=== PATIENT | male | born 1970 | race Caucasian/White ===

== ENCOUNTER → 2016-10-02 | Outpatient (CLI) | payer MEDICARE ==
[~2016-10-02] MED LIST: ABILIFY5 MG PO; ALBUTEROL2.5 MG/0.5 INH; AMITRIPTYLINE25 MG PO; AMOXICILLIN500 MG PO; ASPIRIN81 M1 PO; ATIVAN1 MG PO; ATIVAN2 MG PO; AUGMENTIN 875 M1 TA1 PO; AUGMENTIN 875 M1 TAB PO; B-121000 MCG PO; BACTRIM DS 8001 TA1 PO; BETAMETHASONE D0.05% TP; BUSPAR5 MG PO; CEPHALEXIN250 MG PO; CLEOCIN150 MG PO; CLINDAMYCIN HC300 MG PO; COMBIVENT1 ARO IH; CORDROL20 MG PO; COREG3.125 MG PO; COUMADIN4 M1 PO; COUMADIN4 M2 PO; COUMADIN4 MG PO; COUMADIN5 M1 PO; COUMADIN5 M2 PO; COUMADIN7.5 M1 PO; DELTASONE2.5 M1 PO; DELTASONE20 MG PO; DILANTIN100 MG PO; DIPROSONE 0.05%15 G1 T; DOXYCYCLINE MO100 MG PO; DOXYCYCLINE100 M3 PO; DUONEB 3 MG/3 ML3 M1 INH; Duoneb 3ML 3 MG/3 ML INH; FIORICET 325 MG1 TAB PO; FLEXERIL5 MG PO; GLIMEPIRIDE4 MG PO; GLUCOPHAGE500 M1 PO; HYDROCODONE BIT1 T11 PO; INDOCIN50 MG PO; INDOMETHACIN50 MG PO; KEFLEX500 MG PO; KEPPRA1000 MG PO; KLOR-CON 88 ME1 PO; LANOXIN0.25 MG PO; LASIX20 MG PO; LEVOFLOXACIN500 MG PO; LIPITOR10 MG PO; LOSARTAN POTASS1 TA5 PO; MAGIMIN-FORTE250 MG PO; MAXALT10 MG PO; MEDROL DOSEPAK4 MG PO; METOPROLOL TART50 M1 PO; MOTRIN800 MG PO; Micro K10 MEQ PO; NAPROSYN500 MG PO; NASONEX0.05 MG/AC NS; NEXIUM40 MG PO; OMEPRAZOLE D/R20 MG PO; PANTOPRAZOLE SO40 MG PO; PHENERGAN W/DM120 ML PO; PREDNICOT20 MG PO; PREDNISONE10 MG PO; PREDNISONE20 MG PO; PREDNISONE5 MG PO; PROAIR HFA0.09 MG/AC IH; PROAIR HFA8.5 GM IH; PROTONIX40 MG PO; REGLAN10 MG PO; SEPTRA DS1 TAB PO; SPIRIVA18 MCG IH; SYMBICORT INH; SYMBICORT1 AE1 IH; SYMBICORT1 AE1 INH; TOPAMAX50 MG PO; TORADOL10 MG PO; TRAMADOL HCL50 MG PO; TRAZODONE100 MG PO; ULTRAM50 MG PO; VALIUM10 MG PO; VALIUM5 MG PO; VIBRAMYCIN100 MG PO; VICODIN 5-3001 EACH PO; VICODIN 5/500 505 M1 PO; VICODIN 5/500 505 MG PO; VIMPAT10 MG/ML PO; VIMPAT200 MG PO; VISTARIL50 MG PO; VRAYLAR3 MG PO; WYMOX500 MG PO; ZITHROMAX Z PA250 MG PO; ZITHROMAX250 MG PO; ZOLOFT100 MG PO; ZOLOFT25 MG; ZOLOFT50 MG PO; Zofran4 MG PO; [UNRECOGNIZED DRUG - OTHER]
--- NOTE | ~2016-10-02 | PR ---
[place], [place] PROGRESS NOTE [facility] [id number] UNIT #: [id number] ROOM: DOCTOR: JENNIFER ORTIZ DPM BIRTHDATE: [birth year] DOS: 10/02/2016 SUBJECTIVE: The patient seen for right lower leg midline wound pyoderma gangrenosum. The patient has again had reactions to about every topical wound care product we have tried. Most recently he AmnioFill applied to the area and became inflamed. I put him on doxycycline and prednisone. Today, he presents with a decrease in the irritation symptoms around the wound. Today, the wound measures 2 cm x 1.5 cm x 0.3 cm. No debridement was performed today. Erythema and edema that were present previously has gone down again with the oral antibiotics and oral steroids. 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 PLAN: 1. Evaluate. 2. We would just continue with a dry dressing to the area every other day. We will have the patient reach out to plastics. We have gotten information from [facility] regarding Plastic Surgery referral to Dr. Lowe. We have reached out to Dr. Lowe's office. They will contact the patient and make that referral. I would like to see if the patient is a candidate for a skin flap. He has had skin graft failure here before. We will provide Dr. Lowe's office with a complete copy of the chart to show how many other topical wound care treatments we have done for the patient without any real progress. The patient is then to make an appointment back at the wound care center after he sees Dr. Lowe and is evaluated for a skin flap. JENNIFER ORTIZ DPM CM:PNGONZÁLEZ [id number] JENNIFER ORTIZ DPM 10/02/16 1008 interface
== END ==
LOC: WOUNDCARE 03:10
DX: I87.011 Postthrombotic syndrome with ulcer of right lower extremity (principal); L97.811 Non-pressure chronic ulcer of other part of right lower leg limited to breakdown of skin; L88 Pyoderma gangrenosum

== ENCOUNTER 2017-01-14 20:36 | Emergency (ER) | payer MEDICARE ==
[~2017-01-14] VITALS: Ht 185.4 cm; Wt 113.4 kg
[2017-01-14 21:02] VITALS: BP 115/65
[2017-01-14 22:31] LABS: BASO % 0.4 % (0.0-1.0); EOS # 0.5 10*3/uL (0.0-0.4); EOS % 4.8 % (1.0-4.0); HEMOGLOBIN 12.1 g/dl (14.0-18.0); LYMPH # 1.5 10*3/uL (1.3-4.4); MEAN CORPUSCULAR HGB 27.6 pg (27.0-31.0); MEAN CORPUSCULAR HGB CONC 33.6 g/dl (33.0-37.0); MEAN PLATELET VOLUME 9.2 fl (9.6-12.3); MONO # 0.6 10*3/uL (0.1-1.0); MONO % 6.7 % (3.0-9.0); NEUT # 6.9 10*3/uL (2.3-7.9); NEUT % 71.9 % (47.0-73.0); PLATELET COUNT AUTOMATED 240 10*3/uL (130-400); RED BLOOD COUNT 4.39 10*6/uL (4.50-5.90); WHITE BLOOD COUNT 9.6 10*3/uL (4.8-10.8)
[2017-01-14 22:44] LABS: ALBUMIN 3.9 gm/dl (3.1-4.5); ALKALINE PHOSPHATASE 86 U/L (45-117); BILIRUBIN, TOTAL 0.3 mg/dl (0.2-1.0); BUN 8 mg/dl (7-24); CARBON DIOXIDE 28 mmol/L (21-32); CHLORIDE 105 mmol/L (98-107); EST GLOM FILT AFRICAN AMERICAN > 60 ml/min; GLUCOSE 149 mg/dL (65-99); POTASSIUM 3.3 mmol/L (3.5-5.1); SGOT/AST 25 IU/L (3-35); SGPT/ALT 22 U/L (12-78); SODIUM 145 mmol/L (136-145)
[2017-01-14 23:36] LABS: INTERNATIONAL NORM RATIO 2.4 (2.0-3.5); PROTHROMBIN TIME 26.8 SECONDS (9.0-12.4)
== END 2017-01-15 01:22 | disposition home or self-care (01) ==
LOC: ED 20:36
PROVIDERS: Physician Assistant
DX: Z45.2 Encounter for adjustment and management of vascular access device (principal); Z88.6 Allergy status to analgesic agent; Z88.1 Allergy status to other antibiotic agents; Z88.8 Allergy status to other drugs, medicaments and biological substances; Z79.899 Other long term (current) drug therapy; Z79.82 Long term (current) use of aspirin; Z79.02 Long term (current) use of antithrombotics/antiplatelets

== ENCOUNTER → 2017-01-15 | Day surgery (SDC) | payer MEDICARE ==
[2017-01-15 12:08] VITALS: BP 138/76
== END | disposition home or self-care (01) ==
LOC: SDC 09:20
DX: Z45.2 Encounter for adjustment and management of vascular access device (principal); J44.9 Chronic obstructive pulmonary disease, unspecified; F41.9 Anxiety disorder, unspecified; F32.9 Major depressive disorder, single episode, unspecified; K21.9 Gastro-esophageal reflux disease without esophagitis; E11.9 Type 2 diabetes mellitus without complications; Z87.01 Personal history of pneumonia (recurrent); Z83.3 Family history of diabetes mellitus; Z82.49 Family history of ischemic heart disease and other diseases of the circulatory system

== ENCOUNTER → 2017-01-24 | Outpatient (CLI) | payer MEDICARE ==
--- NOTE | ~2017-01-24 | PR ---
[place], [place] PROGRESS NOTE NAME: SHERRIE ERICKSON [facility] #: [id number] UNIT #: [id number] ROOM: DOCTOR: BREA NewbyPETER BIRTHDATE: [birth year] DOS: 01/24/2017 This is a new patient evaluation. CHIEF COMPLAINT: Chronic ulcer of the right lower extremity. HISTORY OF PRESENT ILLNESS: This is a 46-year-old male that is known to me and known to the Wound Clinic who has been here for several years now with a nonhealing ulcer of the right lower extremity. The ulcer was felt to be of an inflammatory nature and the patient had been seen by Dr. Foreman, and had had intraoperative debridement and placement of EpiFix graft as well as injections of EpiFix graft without any improvement in the wound. He also was placed on fairly high doses of steroids and despite the treatment was noted to have nonhealing ulcer, which initially was noted to have osteomyelitis of the right leg. The patient was going to be considered a candidate for hyperbarics and was going to be considered for an ID evaluation. Eventually, the patient's blood sugar became quite uncontrolled and the patient was admitted into the hospital early in November and eventually due to the nature of the wound and the bone infection, the patient was transferred to a higher level of care. Apparently, he was sent to [facility] for treatment. He eventually underwent OR debridement and a bone debridement there. He said they took out quite a bit of the bone that he is aware of and he was placed on IV antibiotics, believed it was vancomycin by Infectious Disease. Dr. Sumner is managing his antibiotics. He is on IV vanco at least twice a day and is going to have them given through at least sometime during January. He is not quite sure when. He will finish it. He also notes continued pain at the site of the wound. The wound has some granulation tissue, but still is quite open and has not epithelized at all really. The patient also has complications with multiple topical agents that he has tried in the past as well as adhesive topical products have been quite a challenge for him. In addition, he was seen by Dr. Lowe who is a plastic surgeon out in [place] this was prior to him being diagnosed with osteo who at that point was considering some type of skin graft, but due to his steroid use and hemoglobin A1c being elevated, he did not feel he was a candidate at that time for surgery, but he has not seen Dr. Lowe recently since he was diagnosed with osteomyelitis so that is something he has not done yet. But in any case, the patient was discharged home and has come to follow back up in the wound clinic for further management. He is considering hyperbaric oxygen. We did discuss this in the past and we had started the preliminary diagnostic studies for this; however, he really was unable to complete them due to his hospitalization. Though, he did not get the pulmonary function test, echocardiogram, ECG etc. as ordered. PAST MEDICAL HISTORY: Significant for atrial fibrillation. He has got a pacemaker. He is status post mitral valve replacement, on Coumadin. He has a history of migraine headaches. He is being followed by neurologist for this. He has a history of depression, attention deficit disorder, lumbar disk disease, cervical disk disease, chronic ulcer of the right lower extremity for years. He is status post permanent pacemaker as stated above. He was diagnosed with COPD and he blames this related to a previous work habit. He said he did not use any precautions to avoid glutens and has been told that he has had a pretty poor [place], [place] PROGRESS NOTE [facility] [id number] UNIT #: [id number] ROOM: DOCTOR: PETER GUIDRY M.D. BIRTHDATE: [birth year] lung function. He has had a history of a contusion of the left shoulder, contusion of left wrist, elevated blood pressure, history of pleurisy, history of acute bronchitis, history of acute chest pain, cellulitis of the lower extremity, has a history of chest pain with low risk for cardiac etiology, admissions for chest pains, generalized anxiety disorder, hematoma of an injection site, leukocytosis, pyoderma gangrenosum, which was the working diagnosis of his ulcer. He has had multiple fractures and repair, status post surgical manipulation of the ankle joint. He has had trauma from falling off stairs, he has had a history of lymph node biopsies, multiple biopsies as a child, the reason for this is unclear, history of nose fracture. SOCIAL HISTORY: He is a previous smoker. He did smoke heavily 2-4 packs a day for several years over 18, but now just uses snuff daily. No history of illicit drug use. FAMILY HISTORY: Significant for cancer, unknown type in his father, history of hypertension and diabetes. Mother with a history of carotid artery surgery, hypertension and diabetes. ALLERGIES: MULTIPLE AND INCLUDE HE IS ALLERGIC TO SILK SUTURES, TAPE, ACETAMINOPHEN, BACITRACIN FROM A BAND-AID, BRAND ADHESIVE BAND-AIDS, DIPHENHYDRAMINE FROM TYLENOL PM, LIDOCAINE, NEOMYCIN, POLYMYXIN B. HE IS ALSO ALLERGIC TO THE GLUE ON THE WOUND VAC. HE IS ALSO ALLERGIC TO SILVADENE, CALAZIME PROTECTANT PASTE. CURRENT MEDICATIONS: Are as follows: He has tapered off of his prednisone. He says he is not on that anymore, Cozaar 50 mg a day, Levemir subQ daily, hydrochlorothiazide 12.5 daily, Lipitor 10 daily, aspirin 81 a day, Zoloft 100 q. 12, diazepam 5 mg p.o. t.i.d. He was on Coumadin, Glucophage 500 p.o. b.i.d., Ambien 10 mg q.h.s. p.r.n. He believes he is on vancomycin IV. We are going to obtain his most recent discharge summary. These medications are from when he was here in the hospital, so there may have been some changes regarding medications and antibiotics that he is on. MEDICATIONS: The last medication list that we have recorded is from when he was in the hospital. He was at that time on prednisone 5 daily, but he says he is off the prednisone now. He is on Cozaar 50 mg daily, Levemir subQ daily, hydrochlorothiazide 12.5 daily, Lipitor 10 daily, aspirin 81 daily, sertraline 100 q. 12 hours, diazepam 5 mg t.i.d., Coumadin 5 mg daily, metformin 500 p.o. b.i.d. and he is on vancomycin, he believes for IV antibiotic use. We will get an updated medication list from his recent discharge at [place]. REVIEW OF SYSTEMS: He denies any fevers or chills. Recent chest pains. He gets dyspneic on exertion. It is chronic, but he said he is able to walk a fair amount without getting short of breath. He does use his inhalers, he has inhalers. He is going to get us his medication list once again, that was not listed on his medication list for wheezing. He uses that once or twice a day as needed. He denies any nausea or vomiting, diarrhea or problems with his antibiotics at this time. [place], [place] PROGRESS NOTE NAME: SHERRIE ERICKSON [facility] #: [id number] UNIT #: [id number] ROOM: DOCTOR: BREA NewbyPETER BIRTHDATE: [birth year] OBJECTIVE: VITAL SIGNS: He is afebrile, pulse is 80, respirations 16, blood pressure is 120/78. GENERAL: He is in no acute distress. He has somewhat of a flat affect. NECK: There is no JVD. LUNGS: His lungs have coarse breath sounds in the bases, but no overt wheezing. CARDIOVASCULAR: S1, S2 regular rate and rhythm. Mechanical heart sounds appreciable. I do not appreciate a murmur. ABDOMEN: Soft and nontender. EXTREMITIES: There is really no edema or calf tenderness. He has an open wound located on the right anterior tibial area that is measuring 2.8 x 2.8 x 0.2. There is granulation tissue appreciable and some fibrin slough at the periphery of the wound. Redness is definitely calmed down quite a bit from what I could appreciate on the last pictures when he was here that were taken, so that does seem improved. There is tendon exposed. He did not get IRMA done today secondary to he did not want the compression of the cuff around the wound, but he did have arterial studies done, last November when he was here, which showed no proximal significant stenotic lesion, mild bilateral distal atherosclerosis normal; bilateral lower extremity arterial duplex, no evidence of significant arterial occlusive disease, so that has been addressed already. A selective debridement was done today. The tissue removed was just nonviable fibrin and slough. This was accomplished with a curette, forceps, and scissors. There was no bleeding. The patient tolerated the debridement well. No topical anesthesia was used secondary to his allergies. A recent x-ray that was done back in November shows no acute osseous abnormality that was at the tibiofibular area. He has had a bone scan that was positive back in October, which showed findings consistent with osteomyelitis involving the distal shaft of the right tibia that was done back in October. Most recent white count that was back in November was 9.9. His last hemoglobin A1c that I could find was 8.5 and that was in September. His BUN was 8, creatinine is 1.10, this is back on . The hemoglobin A1c was back then in September, I do not see a recent. C-reactive protein actually was 0.29 and that was on 12/05/2016. ASSESSMENT AND PLAN: Chronic non-healing ulceration in a diabetic patient with a bone infection, continues to have an open wound with no improvement as far as the size of the wound goes, it is still open and fairly deep. Tendon is exposed. He has failed multiple modalities as far as wound care goes and even failed EpiFix graft. He is status post bone debridement. He is on IV antibiotics. His circulation is adequate. I would like to use hyperbaric oxygen as adjuvant therapy for treatment. However, I think he should follow up with the plastic surgeon for a skin graft, this wound has been open for so long that the likelihood of healing without surgical intervention is slim in my opinion at this point. He has failed immunosuppressive agents. The ulcer is an inflammatory atypical wound. Other options to consider are possible referral to a assistant professor or gizzard puller who specializes inflammatory processes. However, this is a bit difficult for him to get to [place] for possible consultations. I will discuss with the patient if he would be willing to see a assistant professor or gizzard puller as well in addition to the plastic surgeon. I think that this ulcer is fairly atypical and chronic and has failed multiple [place], [place] PROGRESS NOTE NAME: SHERRIE ERICKSON UNIT #: [id number] ROOM: DOCTOR: PETER GUIDRY M.D. BIRTHDATE: [birth year] modalities and multiple consultations may be warranted in helping to heal this patient. In addition, I think hyperbaric oxygen will also add adjuvant treatment in helping to heal this wound as well and has not been used. He, however, does have some chronic obstructive pulmonary disease. He had an echo done along, it was over a year ago. His ejection fraction at that time was normal from what I can see, but he is going to need a repeat echo. He had a chest x-ray done in November, which showed stable appearance of chronic lung changes. There are increased interstitial markings in the bilateral lung bases. There is no pneumothorax or acute pulmonary process noted. No focal infiltrates. That x-ray was felt to be stable. So he will need pulmonary function tests to see where his lung function is, and based on this, we will see if he is a candidate for hyperbaric oxygen. Follow up in wound Clinic in 1 week. I would like to use TheraHoney for now to help keep the wound clean. He said he has used TheraHoney before and it has not bothered him, so I would like to go ahead and use that for now. PETER GUIDRY MD CM:AUSTIN [id number] PETER GUIDRY M.D. 01/25/17 0749 interface
== END ==
LOC: WOUNDCARE 02:45
DX: E11.622 Type 2 diabetes mellitus with other skin ulcer (principal); L97.814 Non-pressure chronic ulcer of other part of right lower leg with necrosis of bone; J44.9 Chronic obstructive pulmonary disease, unspecified; E11.69 Type 2 diabetes mellitus with other specified complication; M86.361 Chronic multifocal osteomyelitis, right tibia and fibula; I48.91 Unspecified atrial fibrillation; G43.909 Migraine, unspecified, not intractable, without status migrainosus; F32.9 Major depressive disorder, single episode, unspecified; F41.9 Anxiety disorder, unspecified; F17.210 Nicotine dependence, cigarettes, uncomplicated; Z79.01 Long term (current) use of anticoagulants; Z95.0 Presence of cardiac pacemaker

== ENCOUNTER → 2017-04-30 | Outpatient (CLI) | payer MEDICARE ==
--- NOTE | ~2017-04-30 | PR ---
[place], [place] PROGRESS NOTE NAME: SHERRIE ERICKSON [facility] #: [id number] UNIT #: [id number] ROOM: DOCTOR: BREA NewbyPETER BIRTHDATE: [birth year] DOS: 04/30/2017 CHIEF COMPLAINT: Chronic ulcer of the right lower extremity. HISTORY OF PRESENT ILLNESS: This is a 46-year-old male with a history of diabetes and multiple medical problems, has been following up in our Wound Clinic off and on for several years now for nonhealing ulcer of the right lower extremity. The working diagnosis initially had been pyoderma gangrenosum. He had failed immunosuppressive agents, he had been on high dose steroids without any improvement. There was subsequent osteomyelitis. He did have bone debridement and also was treated with IV antibiotics for several weeks. This was managed by Infectious Disease. He was seen by me back in December for possible hyperbaric oxygen therapy to be utilized as adjuvant treatment. At that time, I had recommended pulmonary testing as well as an echocardiogram to see if he would even be considered a candidate for hyperbaric oxygen from a cardiopulmonary standpoint. His wound was open at that time and quite deep and there was tendon exposed. We had recommended to utilize TheraHoney at that time, he stated that he used it for short term and it seemed to irritate the wound and so he stopped using it and has been since then using just saline soaked wet-to-dry dressing daily and he says that seems to be staying the keep things stable. However, I had also recommended for him to go back to surgery. I did not think that this wound was closed without surgical intervention. The patient states that he was only seen [address] Lowe who is the plastic surgeon that he followed up was. When I asked specifically what Dr. Lowe had stated, the patient proceeded to tell me that he is the kind of person and that one would like to take a tie and place it around his neck to the point where his face turned blue "any and test himself." He also stated that the Dr. Lowe was going to refer him to a surgeon at [place] for this; however, the patient states he never heard from the office and never followed back up since then, so he has not seen anyone for this wound for several months now. As far as exam goes temperature is 98.2, pulse is 80, respirations 18. Blood pressure is 100/68. The wound is located on the anterior leg. It is measuring 3 x 2 x 0.2. It looks fairly clean. There is really no overt necrotic tissue present. There is some erythema, which mostly seems chronic, mostly distally is an area of slightly increased erythema and some edema at that point. No debridement was done. This is a patient with chronic nonhealing wound that has been noncompliant with followup and has made verbally threatening remarks against another physician. I spoke with transition social worker here in the hospital who then referred me to Karla Roberto, who I spoke was at length as well and she had recommended for me to call the police department. I called the police department and gave report about the statement that the patient made against Dr. Lowe. I also did inform Dr. Lowe's office and I spoke personally to Dr. Lowe regarding the statement that the patient has made. At this time, we will defer any further testing or recommendation for this patient and we will defer any further wound care advice for the patient due to these verbally threatening remark that the patient has made. I will speak with our services program manager to see what the policy is for discharging this patient from our clinic. [place], [place] PROGRESS NOTE NAME: SHERRIE ERICKSON UNIT #: [id number] ROOM: DOCTOR: PETER GUIDRY M.D. BIRTHDATE: [birth year] PETER GUIDRY MD CM:AUSTIN [id number] PETER GUIDRY M.D. 04/30/17 163 interface
== END ==
LOC: WOUNDCARE 08:50
DX: E11.622 Type 2 diabetes mellitus with other skin ulcer (principal); L97.814 Non-pressure chronic ulcer of other part of right lower leg with necrosis of bone; E11.69 Type 2 diabetes mellitus with other specified complication; M86.361 Chronic multifocal osteomyelitis, right tibia and fibula; L88 Pyoderma gangrenosum

== ENCOUNTER → 2017-05-10 | Outpatient (CLI) | payer MEDICARE ==
[2017-05-10 15:06] LABS: INTERNATIONAL NORM RATIO 3.1 (2.0-3.5); PROTHROMBIN TIME 35.5 SECONDS (9.0-12.4)
== END | disposition home or self-care (01) ==
LOC: LAB 14:20
PROVIDERS: Internal Medicine
DX: I48.91 Unspecified atrial fibrillation (principal)

== ENCOUNTER → 2017-06-24 | Outpatient (CLI) | payer MEDICARE ==
[2017-06-24 15:12] LABS: INTERNATIONAL NORM RATIO 2.1 (2.0-3.5)
== END | disposition home or self-care (01) ==
LOC: LAB 14:02
PROVIDERS: Internal Medicine
DX: I48.91 Unspecified atrial fibrillation (principal)

== ENCOUNTER 2017-07-25 15:14 | Emergency (ER) | payer MEDICARE ==
[~2017-07-25] VITALS: Ht 177.8 cm; Wt 90.7 kg
[2017-07-25 15:20] VITALS: BP 112/74
== END 2017-07-25 16:04 | disposition home or self-care (01) ==
LOC: ED 15:14
DX: T15.92XA Foreign body on external eye, part unspecified, left eye, initial encounter (principal); F17.200 Nicotine dependence, unspecified, uncomplicated; Z88.1 Allergy status to other antibiotic agents; Z88.8 Allergy status to other drugs, medicaments and biological substances; Z91.048 Other nonmedicinal substance allergy status; X58.XXXA Exposure to other specified factors, initial encounter; Y93.89 Activity, other specified; Y92.89 Other specified places as the place of occurrence of the external cause; Y99.8 Other external cause status

== ENCOUNTER → 2018-10-16 | Outpatient (CLI) | payer MEDICARE | END | disposition home or self-care (01) | LOC: CARD 10-15 10:30 | DX: I51.7 Cardiomegaly (principal); R00.2 Palpitations; Z95.2 Presence of prosthetic heart valve ==

== ENCOUNTER → 2018-10-22 | Outpatient (CLI) | payer MEDICARE ==
[2018-10-23 08:12] LABS: ALPHA-1-ANTITRYPSIN, SERUM 118 mg/dL (90-200)
== END | disposition home or self-care (01) ==
LOC: LAB 15:35
PROVIDERS: Internal Medicine Critical Care Medicine
DX: J44.9 Chronic obstructive pulmonary disease, unspecified (principal)

== ENCOUNTER → 2019-04-30 | Outpatient (CLI) | payer MEDICARE ==
[~2019-04-30] MED LIST changes: +AMARYL1 M1 PO; +IMDUR SA30 MG PO; +PERCOCET 5-3251 EACH PO; +RITALIN LA20 MG PO
--- NOTE | ~2019-04-30 | ST ---
[place], [place] EXERCISE STRESS TEST REPORT NAME: [facility] ERICKSON [id number] UNIT #: [id number] ROOM: DOCTOR: ARTIS ADAMS [facility],JOSSEL[place] BIRTHDATE: [birth year] DOS: 04/30/2019 The patient received Lexiscan 0.4 mg over 10 seconds. Heart rate is 85. No ischemic changes on the EKG intermittent AV pacing with predominantly intrinsic QRS with atrial pacing and isotope was injected. No complication noted. Myocardial perfusion scan to follow. JSOSELIN WISDOM MD CM:STRESS:EXERCISE STRESS TEST REPORT [id number] JOSSELIN WISDOM MD [facility]
--- NOTE | 2019-04-30 11:50 | NUR ---
INFORMED CONSENT OBTAINED FOR LEXISCAN NUCLEAR STRESS TEST WITH DR. WISDOM. RESTING EKG ATRIAL PACED WITH A RESTING HR OF 86 WITH BP OF 110/78. LUNGS CLEAR WITH SPO2 OF 98% ON ROOM AIR. PT COMPLETED A 1:00 LEXISCAN PROTOCOL RECEIVING LEXISCAN 0.4 MG IV OVER 10 SECONDS. HAD NO CHEST PAIN. EKG NONDIAGNOSTIC WITH PACEMAKER. HAS INTERMITTENT VENTRICULAR PACED. HAD A PEAK HR OF 86 WITH BP OF 124/82. LAST RECOVERY HR OF 85 WITH BP OF 110/74. AWAITING SCANNING IN STABLE CONDITION.
== END | disposition home or self-care (01) ==
LOC: CARD 00:48
DX: R06.02 Shortness of breath (principal); R53.81 Other malaise; R07.89 Other chest pain; J44.9 Chronic obstructive pulmonary disease, unspecified; Z95.0 Presence of cardiac pacemaker; Z95.2 Presence of prosthetic heart valve; Z82.49 Family history of ischemic heart disease and other diseases of the circulatory system

== ENCOUNTER 2019-06-05 14:03 | Inpatient (IN) | payer MEDICARE ==
[~2019-06-05] VITALS: Ht 185.4 cm; Wt 115.9 kg
[2019-06-05 14:07] VITALS: BP 128/80
[2019-06-05 15:17] LABS: BASO # 0.1 10*3/uL (0.0-0.1); BASO % 0.5 % (0.0-1.0); EOS # 0.3 10*3/uL (0.0-0.4); EOS % 2.9 % (1.0-4.0); HEMATOCRIT 42.1 % (42.0-52.0); HEMOGLOBIN 14.1 g/dl (14.0-18.0); LYMPH % 21.4 % (27.0-41.0); MEAN CELL VOLUME 87.3 fl (80.0-94.0); MEAN CORPUSCULAR HGB 29.3 pg (27.0-31.0); MEAN CORPUSCULAR HGB CONC 33.5 g/dl (33.0-37.0); MEAN PLATELET VOLUME 8.5 fl (9.6-12.3); MONO # 0.6 10*3/uL (0.1-1.0); MONO % 6.4 % (3.0-9.0); NEUT # 6.4 10*3/uL (2.3-7.9); NEUT % 68.5 % (47.0-73.0); PLATELET COUNT AUTOMATED 261 10*3/uL (130-400); RED BLOOD COUNT 4.82 10*6/uL (4.50-5.90); RED CELL DISTRI WIDTH 13.1 % (0-14.5); WHITE BLOOD COUNT 9.3 10*3/uL (4.8-10.8)
[2019-06-05 15:35] LABS: ALBUMIN 3.9 gm/dl (3.1-4.5); ALKALINE PHOSPHATASE 141 U/L (45-117); BUN 10 mg/dl (7-24); CHLORIDE 103 mmol/L (98-107); CREATININE 1.43 mg/dL (0.70-1.30); POTASSIUM 3.7 mmol/L (3.5-5.1); SGOT/AST 16 IU/L (3-35); SGPT/ALT 30 U/L (12-78); SODIUM 137 mmol/L (136-145); TOTAL PROTEIN 7.5 gm/dL (6.4-8.2)
[2019-06-05 15:44] LABS: ACT PARTIAL THROMBO TIME 36.7 SECONDS (20.0-32.1); INTERNATIONAL NORM RATIO 2.1 (2.0-3.5)
[2019-06-05 15:58] VITALS: BP 117/59
--- NOTE | 2019-06-05 17:26 | NUR ---
PT W/O ACUTE DISTRESS NOTED AWAITING ALL RESULTS FOR ADDITIONAL PLAN OF CARE,SAFETY PRECAUTIONS INTACT AND CALL LIGHT WITHIN REACH.
[2019-06-05 17:28] VITALS: BP 108/74
--- NOTE | 2019-06-05 18:55 | NUR ---
PT WITH MULTIPLE ABRASIONS/SCRATCHES NOTED TO BUE NO EXUDATE NO TX REQUIRED.
[2019-06-05 19:34] VITALS: BP 108/80
[2019-06-05 19:45] VITALS: BP 111/69
--- NOTE | 2019-06-05 19:45 | NUR ---
Time: 1946 A 48 year old MALE admitted to 4E under services of PARK NEVES DO. Pt. arrived via wheel chair from ER. Chief complaint: R LEG WOUND, CHRONIC OSTEO, NON-HEALING ULCER. PATIENT ORIENTED TO THE FLOOR 4E CALL LIGHT REVIEWED AND DEMONSTRATED ADVANCED DIRECTIVE, BELONGINGS CHECKLIST AND HEALTHY LIFESTYLES FORM REVIEWED AND COMPLETED. RIRI PALOMINO
--- NOTE | 2019-06-05 20:10 | NUR ---
SPOKE WITH DR LUCIA, NOTIFIED THAT [facility] REC IS UP-TO-DATE. PATIENT WILL BE GIVEN A NON-SCHEDULED DOSE OF LASIX AND RITALIN WILL BE GIVEN TO MAINTAIN PATIENT REGULAR HOME MEDICATION SCHEDULE.
--- NOTE | 2019-06-05 20:30 | NUR ---
PODIATRY AND INFECTIOUS DISEASE NOTIFIED OF ROUTINE CONSULTS. CALLBACK NUMBER PROVIDED. PATIENT CONDITION REVIEWED.
[2019-06-06] VITALS: BP 107/63
--- NOTE | 2019-06-06 | NUR ---
Patient resting quietly with no c/o discomfort. Respirations easy and regular. Vital signs stable. No overt distress. ION HAGER
--- NOTE | 2019-06-06 04:00 | NUR ---
Patient resting quietly with no c/o discomfort. Respirations easy and regular. Vital signs stable. No overt distress. ION HAGER
--- NOTE | 2019-06-06 05:46 | NUR ---
24 HR chart check completed.
[2019-06-06 06:26] LABS: BASO % 0.5 % (0.0-1.0); EOS # 0.3 10*3/uL (0.0-0.4); HEMATOCRIT 42.2 % (42.0-52.0); HEMOGLOBIN 13.7 g/dl (14.0-18.0); LYMPH # 1.8 10*3/uL (1.3-4.4); LYMPH % 29.4 % (27.0-41.0); MEAN CELL VOLUME 88.8 fl (80.0-94.0); MEAN CORPUSCULAR HGB 28.8 pg (27.0-31.0); MEAN CORPUSCULAR HGB CONC 32.5 g/dl (33.0-37.0); MEAN PLATELET VOLUME 9.2 fl (9.6-12.3); MONO # 0.5 10*3/uL (0.1-1.0); MONO % 8.5 % (3.0-9.0); NEUT # 3.6 10*3/uL (2.3-7.9); NEUT % 57.3 % (47.0-73.0); PLATELET COUNT AUTOMATED 232 10*3/uL (130-400); RED BLOOD COUNT 4.75 10*6/uL (4.50-5.90); RED CELL DISTRI WIDTH 13.1 % (0-14.5); WHITE BLOOD COUNT 6.3 10*3/uL (4.8-10.8)
[2019-06-06 07:06] LABS: ALBUMIN 3.5 gm/dl (3.1-4.5); ALKALINE PHOSPHATASE 131 U/L (45-117); BUN 10 mg/dl (7-24); CHLORIDE 104 mmol/L (98-107); CHOLESTEROL 144 mg/dL (<200); CREATININE 1.31 mg/dL (0.70-1.30); PHOSPHOROUS 4.3 mg/dL (2.5-4.9); POTASSIUM 3.6 mmol/L (3.5-5.1); SGOT/AST 20 IU/L (3-35); SGPT/ALT 26 U/L (12-78); SODIUM 141 mmol/L (136-145); TOTAL PROTEIN 6.7 gm/dL (6.4-8.2); TRIGLYCERIDES 281 mg/dl (<150); VLDL CHOLESTEROL 56 mg/dL (6-40)
[2019-06-06 07:07] LABS: HDL CHOLESTEROL 35 mg/dl (40-60); LDL CHOLESTEROL 53 mg/dL (9-159)
[2019-06-06 07:09] LABS: INTERNATIONAL NORM RATIO 2.1 (2.0-3.5)
[2019-06-06 08:00] VITALS: BP 113/77
[2019-06-06 12:00] VITALS: BP 116/78
--- NOTE | 2019-06-06 12:14 | NUR ---
WALKING PEREZ WITH EASE, NO COMPLIANTS VOICED.
--- NOTE | 2019-06-06 13:24 | NUR ---
OFF FLOOR FOR CT.
--- NOTE | 2019-06-06 15:24 | NUR ---
DRESSING CHANGED FOR SOILAGE PER ORDERS.
[2019-06-06 16:00] VITALS: BP 128/74
--- NOTE | 2019-06-06 17:40 | NUR ---
PT C/O GENERALIZED PAIN, WORSE ON THE LEG. RATING 10/10 ON THE PAIN SCALE. MEDICATED WITH PERCOCET. WILL MONITOR.
--- NOTE | 2019-06-06 18:40 | NUR ---
PT STATES PAIN MEDICATION WAS NOT EFFECTIVE. RATING PAIN A 10/10 STILL. NOTIFIED PRIMARY TEAM. NEW ORDERS FOR IV MORPHINE SEE NOV.
[2019-06-06 20:00] VITALS: BP 103/57
--- NOTE | 2019-06-06 20:00 | NUR ---
24 HOUR CHART CHECK COMPLETE.
--- NOTE | 2019-06-06 21:00 | NUR ---
DRESSING CHANGE PREFORMED TO PT RIGHT ANKLE WOUND D/T SATURATION. BLOODY DRAINAGE NOTED. WOUND CLEANED WITH NORMAL SALINE, THERAHONEY APPLIED, AND NEW OPTIFOAM IN PLACE. PT TOLERATED WELL. WOUND BED RED. ERYTHEMA NOTED SURROUNDING WOUND BED WELL. NO FOUL ODORS. PT STATES THE SITE IS PAINFUL.
--- NOTE | 2019-06-06 21:17 | NUR ---
PRN MORPHINE ADMINISTERED FOR PT C/O 07/09 RT ANKLE PAIN. WILL CONTINUE TO MONITOR AND REASSESS. NO OTHER COMPLAINTS AT THIS TIME. CALL LIGHT IN REACH.
--- NOTE | 2019-06-06 22:14 | NUR ---
PT PLAYING ON PHONE IN BED. WHEN ASKED ABOUT HIS PAIN PT STATES THE MORPHINE "HELPED VERY LITTLE". PT DOESNT APPEAR TO BE IN ANY DISTRESS AT THIS TIME. RESPIRATIONS EASY AND UNLABORED. WILL CONTINUE TO MONITOR.
[2019-06-07] VITALS: BP 105/64
[2019-06-07 06:28] LABS: BASO % 0.4 % (0.0-1.0); EOS # 0.2 10*3/uL (0.0-0.4); EOS % 3.3 % (1.0-4.0); HEMOGLOBIN 13.2 g/dl (14.0-18.0); LYMPH # 1.8 10*3/uL (1.3-4.4); LYMPH % 25.9 % (27.0-41.0); MEAN CELL VOLUME 87.3 fl (80.0-94.0); MEAN CORPUSCULAR HGB 28.8 pg (27.0-31.0); MEAN PLATELET VOLUME 9.3 fl (9.6-12.3); MONO # 0.6 10*3/uL (0.1-1.0); MONO % 8.3 % (3.0-9.0); NEUT # 4.3 10*3/uL (2.3-7.9); NEUT % 61.8 % (47.0-73.0); PLATELET COUNT AUTOMATED 230 10*3/uL (130-400); RED BLOOD COUNT 4.58 10*6/uL (4.50-5.90)
[2019-06-07 06:38] LABS: BUN 10 mg/dl (7-24); CHLORIDE 101 mmol/L (98-107); CREATININE 1.25 mg/dL (0.70-1.30); POTASSIUM 3.3 mmol/L (3.5-5.1); SODIUM 138 mmol/L (136-145)
[2019-06-07 06:40] LABS: INTERNATIONAL NORM RATIO 2.3 (2.0-3.5)
[2019-06-07 08:00] VITALS: BP 107/65
[2019-06-07] MEDS ORDERED: SEPTDS PO (11:39)
[2019-06-07] MEDS ORDERED: NATURE'S BLEND F1 MG PO (11:39)
--- NOTE | 2019-06-07 12:07 | NUR ---
discharge photo of wound taken.
--- NOTE | 2019-06-07 12:32 | NUR ---
Discharge instructions reviewed with patient/family. Patient receptive and verbalizes understanding. Follow-up care arranged. Written instructions given to patient/family. Pt. educated to follow up with outpatient surgeon regaurding wound to right leg. pt verbalized understanding. discharge picture of wound taken. ELEN DOE
[2019-09-09] MEDS ORDERED: TRAMADOL HCL50 MG PO (14:03)
[2019-09-09] MEDS ORDERED: DOXYCYCLINE100 M3 PO (14:05)
== END 2019-06-07 12:32 | disposition home or self-care (01) | DRG 863 ==
LOC: ED 14:03 → EDHOLD 18:11 → 4E 18:42
PROVIDERS: Internal Medicine; Physician Assistant; Student in an Organized Health Care Education/Training Program; ADMIT Internal Medicine
DX: T81.49XA Infection following a procedure, other surgical site, initial encounter (principal); M86.661 Other chronic osteomyelitis, right tibia and fibula; L97.313 Non-pressure chronic ulcer of right ankle with necrosis of muscle; D68.9 Coagulation defect, unspecified; L03.115 Cellulitis of right lower limb; E11.622 Type 2 diabetes mellitus with other skin ulcer; N18.3 Chronic kidney disease, stage 3 (moderate); E11.69 Type 2 diabetes mellitus with other specified complication; R74.8 Abnormal levels of other serum enzymes; E66.9 Obesity, unspecified; J41.0 Simple chronic bronchitis; F41.1 Generalized anxiety disorder; G43.911 Migraine, unspecified, intractable, with status migrainosus; F17.210 Nicotine dependence, cigarettes, uncomplicated; I48.0 Paroxysmal atrial fibrillation; E11.65 Type 2 diabetes mellitus with hyperglycemia; E11.22 Type 2 diabetes mellitus with diabetic chronic kidney disease; E78.5 Hyperlipidemia, unspecified; Y83.8 Other surgical procedures as the cause of abnormal reaction of the patient, or of later complication, without mention of misadventure at the time of the procedure; Y92.89 Other specified places as the place of occurrence of the external cause; Z88.4 Allergy status to anesthetic agent; Z88.8 Allergy status to other drugs, medicaments and biological substances; Z91.09 Other allergy status, other than to drugs and biological substances; Z95.2 Presence of prosthetic heart valve; Z80.8 Family history of malignant neoplasm of other organs or systems; Z83.3 Family history of diabetes mellitus; Z82.49 Family history of ischemic heart disease and other diseases of the circulatory system; Z84.89 Family history of other specified conditions; Z79.899 Other long term (current) drug therapy; Z79.84 Long term (current) use of oral hypoglycemic drugs; Z79.01 Long term (current) use of anticoagulants; Z95.0 Presence of cardiac pacemaker; Z86.14 Personal history of Methicillin resistant Staphylococcus aureus infection; Z68.33 Body mass index [BMI] 33.0-33.9, adult

== ENCOUNTER 2019-06-17 07:44 | Emergency (ER) | payer MEDICARE ==
[~2019-06-17] VITALS: Ht 185.4 cm; Wt 114.3 kg
--- NOTE | ~2019-06-17 | EKG ---
[place], [place] ELECTROCARDIOGRAM REPORT NAME: SHERRIE ERICKSON UNIT #: [id number] ROOM: DOCTOR: TROY DRAFT REPORT BIRTHDATE: [birth year] [facility] Test Date: 2019-06-17 Test Time: 08:33:23 Pat Name: SHERRIE ERICKSON Department: Room: Gender: M Component Overhaul Operator: Caterina Armstrong : 1970 Requested By: CINDY KIRK Order Number: [id number] Reading MD: Partha Mckeon Measurements Intervals [place] Rate: 85 P: NV: 117 QRS: 22 QRSD: 102 T: 37 QT: 386 QTc: 459 Interpretive Statements Atrial-paced rhythm Electronically Signed On 06-19-2019 12:03:35 PDT by Partha Mckeon CM:EKGRPT:ELECTROCARDIOGRAM REPORT [id number] CINDY RAMEY DRAFT REPORT CINDY KIRK DO
[~2019-06-17 07:44] MED LIST changes: +NATURE'S BLEND F1 MG PO; +SEPTDS PO
[2019-06-17 07:47] VITALS: BP 114/73
[2019-06-17 08:27] LABS: BASO % 0.5 % (0.0-1.0); EOS # 0.3 10*3/uL (0.0-0.4); EOS % 3.4 % (1.0-4.0); HEMATOCRIT 40.1 % (42.0-52.0); HEMOGLOBIN 13.2 g/dl (14.0-18.0); LYMPH # 1.8 10*3/uL (1.3-4.4); LYMPH % 22.2 % (27.0-41.0); MEAN CELL VOLUME 88.3 fl (80.0-94.0); MEAN CORPUSCULAR HGB 29.1 pg (27.0-31.0); MEAN CORPUSCULAR HGB CONC 32.9 g/dl (33.0-37.0); MEAN PLATELET VOLUME 8.8 fl (9.6-12.3); MONO # 0.5 10*3/uL (0.1-1.0); MONO % 5.5 % (3.0-9.0); NEUT # 5.5 10*3/uL (2.3-7.9); NEUT % 67.9 % (47.0-73.0); PLATELET COUNT AUTOMATED 273 10*3/uL (130-400); RED BLOOD COUNT 4.54 10*6/uL (4.50-5.90); RED CELL DISTRI WIDTH 13.3 % (0-14.5); WHITE BLOOD COUNT 8.1 10*3/uL (4.8-10.8)
[2019-06-17 08:43] LABS: ACT PARTIAL THROMBO TIME 51.8 SECONDS (20.0-32.1); ALBUMIN 3.7 gm/dl (3.1-4.5); CREATININE 1.63 mg/dL (0.70-1.30); INTERNATIONAL NORM RATIO 4.5 (2.0-3.5); POTASSIUM 3.7 mmol/L (3.5-5.1); TOTAL PROTEIN 7.2 gm/dL (6.4-8.2); TROPONIN I 0.016 ng/ml (<0.045)
== END 2019-06-17 11:56 | disposition home or self-care (01) ==
LOC: ED 07:44
PROVIDERS: Emergency Medicine
DX: E11.622 Type 2 diabetes mellitus with other skin ulcer (principal); L97.919 Non-pressure chronic ulcer of unspecified part of right lower leg with unspecified severity; L03.115 Cellulitis of right lower limb; M86.8X6 Other osteomyelitis, lower leg; E11.22 Type 2 diabetes mellitus with diabetic chronic kidney disease; N18.3 Chronic kidney disease, stage 3 (moderate); I48.91 Unspecified atrial fibrillation; J44.9 Chronic obstructive pulmonary disease, unspecified; E78.5 Hyperlipidemia, unspecified; G43.909 Migraine, unspecified, not intractable, without status migrainosus; E66.9 Obesity, unspecified; F17.200 Nicotine dependence, unspecified, uncomplicated; Z88.8 Allergy status to other drugs, medicaments and biological substances; Z91.048 Other nonmedicinal substance allergy status; Z88.1 Allergy status to other antibiotic agents; Z88.4 Allergy status to anesthetic agent; Z79.2 Long term (current) use of antibiotics; Z79.899 Other long term (current) drug therapy; Z79.01 Long term (current) use of anticoagulants; Z68.30 Body mass index [BMI] 30.0-30.9, adult

== ENCOUNTER 2019-06-24 00:16 | Inpatient (IN) | payer MEDICARE ==
[2019-06-22 14:22] LABS: BASO # 0.1 10*3/uL (0.0-0.1); BASO % 0.6 % (0.0-1.0); EOS # 0.3 10*3/uL (0.0-0.4); EOS % 3.5 % (1.0-4.0); HEMOGLOBIN 15.4 g/dl (14.0-18.0); LYMPH # 1.6 10*3/uL (1.3-4.4); LYMPH % 18.6 % (27.0-41.0); MEAN CELL VOLUME 89.7 fl (80.0-94.0); MEAN CORPUSCULAR HGB 28.8 pg (27.0-31.0); MEAN CORPUSCULAR HGB CONC 32.1 g/dl (33.0-37.0); MEAN PLATELET VOLUME 9.2 fl (9.6-12.3); MONO # 0.6 10*3/uL (0.1-1.0); MONO % 6.7 % (3.0-9.0); NEUT # 6.2 10*3/uL (2.3-7.9); NEUT % 70.3 % (47.0-73.0); PLATELET COUNT AUTOMATED 306 10*3/uL (130-400); RED BLOOD COUNT 5.35 10*6/uL (4.50-5.90); RED CELL DISTRI WIDTH 13.2 % (0-14.5); WHITE BLOOD COUNT 8.8 10*3/uL (4.8-10.8)
[2019-06-22 14:42] LABS: CREATININE 1.68 mg/dL (0.70-1.30); POTASSIUM 4.1 mmol/L (3.5-5.1)
[~2019-06-24] VITALS: Ht 185.4 cm; Wt 121.7 kg
[2019-06-24] VITALS (9 sets, daily range): BP systolic 107–142; BP diastolic 69–88
--- NOTE | 2019-06-24 14:00 | NUR ---
Time: 1399 A 48 year old FEMALE admitted to under services of VIKASH ALEXANDER DO. Pt. arrived via bed from [place]. Chief complaint: ULCERATION ANTERIOR ASPECT RT ANKLE PROB OSTEOMYLITIS. CAIT YEBOAH
--- NOTE | 2019-06-24 14:23 | NUR ---
TEAM CALLED AND INFORMED THAT PATIENT IS ADMITTED TO FLOOR. STATED THAT PODIATRY DID NOT INFORM HIM OF PATIENT AND STATED THAT MARILOU TEAM NEEDS TO CONTACT HIM. NURSING MILLINERY DESIGNER LOUISA INFORMED OF SITUATION STATED THAT SHE WILL CALL SURGERY AND GO FROM THERE.
--- NOTE | 2019-06-24 14:51 | NUR ---
INFORMED THAT HOME MEDS WERE VERIFED BY PATIENT AND THAT PATIENT IS REQUESTING DIET ORDER AT THIS TIME. STATED OK
--- NOTE | 2019-06-24 15:59 | NUR ---
DR RUBALCAVA MADE AWARE OF NEW CONSULT.
--- NOTE | 2019-06-24 18:31 | NUR ---
MEDICATED WITH PERCOCERT PER PRN ORDER FOR COMPLAINTS OF RIGHT FOOT PAIN, RATES PAIN 7/10. WILL MONITOR.
--- NOTE | 2019-06-24 19:31 | NUR ---
PERCOCET EFFECTIVE FOR FOOT PAIN.
[2019-06-25] VITALS: BP 119/79
--- NOTE | 2019-06-25 03:22 | NUR ---
24 HR chart check completed.
[2019-06-25 06:49] LABS: BASO % 0.4 % (0.0-1.0); EOS # 0.3 10*3/uL (0.0-0.4); EOS % 3.8 % (1.0-4.0); HEMATOCRIT 37.9 % (42.0-52.0); HEMOGLOBIN 12.1 g/dl (14.0-18.0); LYMPH # 1.4 10*3/uL (1.3-4.4); LYMPH % 19.7 % (27.0-41.0); MEAN CELL VOLUME 91.1 fl (80.0-94.0); MEAN CORPUSCULAR HGB 29.1 pg (27.0-31.0); MEAN CORPUSCULAR HGB CONC 31.9 g/dl (33.0-37.0); MEAN PLATELET VOLUME 9.4 fl (9.6-12.3); MONO # 0.6 10*3/uL (0.1-1.0); NEUT # 4.7 10*3/uL (2.3-7.9); NEUT % 66.7 % (47.0-73.0); PLATELET COUNT AUTOMATED 223 10*3/uL (130-400); RED BLOOD COUNT 4.16 10*6/uL (4.50-5.90); RED CELL DISTRI WIDTH 13.2 % (0-14.5)
[2019-06-25 07:08] LABS: ALBUMIN 3.2 gm/dl (3.1-4.5); BUN 11 mg/dl (7-24); CHLORIDE 105 mmol/L (98-107); SGOT/AST 15 IU/L (3-35); SGPT/ALT 18 U/L (12-78); SODIUM 138 mmol/L (136-145)
[2019-06-25 07:15] LABS: ALKALINE PHOSPHATASE 119 U/L (45-117); PHOSPHOROUS 3.1 mg/dL (2.5-4.9); TOTAL PROTEIN 6.3 gm/dL (6.4-8.2)
[2019-06-25 08:00] VITALS: BP 108/72
--- NOTE | 2019-06-25 08:10 | NUR ---
MEDICATED PT PER PRN ORDERE WITH PERCOCET FOR C/O PAIN ABOVE RIGHT ANKLE THAT RATES 10/10 ON PAIN SCALE. PT'S RIGHT LOWER LEG WRAPPED. TOES WARM WITH GOOD CAP REFILL AT PRESENT TIME.
--- NOTE | 2019-06-25 09:00 | NUR ---
Automatic Serging Machine Operator in to talk to patient. Patient states lives at home with jayne. There are few steps in the home. Physician: sarah [facility] Home health services: none Patient's level of ADLs: INDEPENDENT Patient has working utilities: all working DME: none Follow-up physician's appointment after d/c: will be made by hospitalist nurse director upon discharge Does patient want to access PORTAL?: no Discharge plan discussed with patient, he lives at home with jayne, he states he was independent in adls and ambulation prior to hopsitalization, no ambulation devices at home. discussed with him a discharge plan and he stated he would return home, when medically stable, discussed with him VNA and he declines any services at this time, also discussed with him if he would need home iv antibiotics if he was able to administer them or if he would need to go to a short term long term, he stated his fiance administered them previously and could do this again, case management will follow. TOI JONES
--- NOTE | 2019-06-25 09:00 | NUR ---
PT STATES "LITTLE RELIEF" OF PAIN WITH EARLIER PERCOCET. PT STATED"IT IS MY FAULT...I WAITED TO LONG TO ASK."
[2019-06-25 12:00] VITALS: BP 110/67
--- NOTE | 2019-06-25 15:24 | NUR ---
Pt c/o pain 10/10 stabbing from knee to toe d/t recent surgery. Medicated per order. Verbalized relief. Resp are easy and regular, skin pwd, speaking with . No acute distress noted at this time.
[2019-06-25 16:00] VITALS: BP 115/71
[2019-06-25 16:02] LABS: ACID FAST SPEC PROCESSING Tissue Grinding (.)
[2019-06-25 20:00] VITALS: BP 121/65
--- NOTE | 2019-06-25 22:30 | NUR ---
AT THIS TIME PATIENT IN ROOM REQUESTING TO SPEAK WITH THE NURSE OF A FAMILY MEMBER WHO IS ALSO A PATIENT IN THE HOSPITAL. PATIENT IN WITH DAUGHTER WHO IS GRANDAUGHTER OF OTHER PATIENT. THE PATIENT IS INQUIRING ABOUT WHY THE OTHER PATIENTS FAMILY IS NOT ABLE TO STAY WITH HER WHILE SHE IS ON HOSPICE. EXPLAINED TO THE PATIENT THAT AT THIS TIME THE OTHER PATIENT IS STABLE AND ITS JUST OUR POLICY THAT NOBODY CAN STAY WITH THE OTHER PATIENT RIGHT NOW, BUT THEY ARE MORE THAN WELCOME TO STAY IN THE LOBBY AND IF ANYTHING WERE TO CHANGE THEY WOULD BE BROUGHT BACK TO BE WITH THE OTHER PATIENT. THIS PATIENT BECAME ANGRY AND BEGAN CUSSING AT THIS NURSE AND THE OTHER PATIENTS NURSE. HE AND HIS DAUGHTER REQUESTED THAT THE OTHER PATIENT BE TRANSFERRED TO ANOTHER HOSPITAL SINCE IT WAS NOT RIGHT WHAT WAS GOING ON IN THIS HOSPITAL. EXPLAINED TO THE PATIENT THAT IT'S JUST THE POLICY AND UNFORTUNATELY WE ARE NOT ABLE TO CHANGE THAT. THE PATIENT CONTINUED TO SWEAR AND GET LOUD WITH THIS NURSE AND THE OTHER PATIENTS NURSE. THIS PATIENTS DAUGHTER AND THE OTHER PATIENTS SON IN ROOM. THE PATIENT STATED THAT THE OTHER PATIENTS SON SHOULD BE ALLOWED IN THE ROOM WITH HIS MOTHER BECAUSE HE IS MENTALLY HANDICAPPED AND DOESN'T REALLY UNDERSTAND OR CANOT PROCESS WHAT IS GOING ON AND HE STATED THAT THE OTHER PATIENT WAS NOT COMFORTABLE WITHOUT HER FAMILY BEING IN THE ROOM. MULTIPLE TIMES IT WAS EXPLAINED TO THIS PATIENT THE POLICY OF THE HOSPITAL AND AFTER APOLOGIZING, THERE WAS NOTHING THAT WE WERE ABLE TO DO OUR LOGISTICS COORDINATOR WAS ALSO AWARE OF SITUATION AND REINFORCED THE POLICY. THE PATIENT STATED THAT HE WILL GET AHOLD OF WHOEVER HE HAD TO IN THE MORNING TO LET THEM KNOW HOW TERRIBLE THIS POLICY THIS IS AND THAT IT WASN'T RIGHT WHAT THIS NURSE AND THE OTHER PATIENTS NURSE WAS DOING. AGAIN EXPLAINED THAT THIS WAS OUT OF OUR HANDS, BUT REASSURED HIM THAT THE OTHER PATIENTS FAMILY MAY STAY IN THE LOBBY AND THEY WILL BE PROVIDED RECLINERS AND BLANKETS AND PILLOWS TO MAKE THEM COMFORTABLE AND THAT IF ANYTHING WERE TO HAPPEN OR CHANGE WITH THE OTHER PATIENT THAT THEY WOULD BE IMMEDIATELY BROUGHT BACK TO BE WITH HER, WHILE LEAVING ROOM PATIENT CONTINUES TO GET LOUD AND SWEAR ABOUT SITUATION.
[2019-06-26] VITALS: BP 116/82
[2019-06-26 06:30] LABS: BASO % 0.4 % (0.0-1.0); EOS # 0.2 10*3/uL (0.0-0.4); EOS % 3.4 % (1.0-4.0); HEMATOCRIT 36.9 % (42.0-52.0); HEMOGLOBIN 11.7 g/dl (14.0-18.0); LYMPH # 1.4 10*3/uL (1.3-4.4); LYMPH % 19.9 % (27.0-41.0); MEAN CELL VOLUME 89.8 fl (80.0-94.0); MEAN CORPUSCULAR HGB 28.5 pg (27.0-31.0); MEAN CORPUSCULAR HGB CONC 31.7 g/dl (33.0-37.0); MEAN PLATELET VOLUME 9.5 fl (9.6-12.3); MONO # 0.6 10*3/uL (0.1-1.0); MONO % 9.1 % (3.0-9.0); NEUT # 4.5 10*3/uL (2.3-7.9); NEUT % 67.1 % (47.0-73.0); PLATELET COUNT AUTOMATED 214 10*3/uL (130-400); RED BLOOD COUNT 4.11 10*6/uL (4.50-5.90); RED CELL DISTRI WIDTH 13.1 % (0-14.5); WHITE BLOOD COUNT 6.8 10*3/uL (4.8-10.8)
[2019-06-26 06:41] LABS: ALBUMIN 3.3 gm/dl (3.1-4.5); ALKALINE PHOSPHATASE 111 U/L (45-117); BUN 11 mg/dl (7-24); CHLORIDE 107 mmol/L (98-107); CREATININE 1.46 mg/dL (0.70-1.30); POTASSIUM 4.2 mmol/L (3.5-5.1); SGOT/AST 13 IU/L (3-35); SGPT/ALT 15 U/L (12-78); SODIUM 138 mmol/L (136-145); TOTAL PROTEIN 6.6 gm/dL (6.4-8.2)
[2019-06-26 08:00] VITALS: BP 104/64
--- NOTE | 2019-06-26 09:00 | NUR ---
case management visits with patient, he states he will return home when able with no needs at this time, case management will follow
--- NOTE | 2019-06-26 09:50 | NUR ---
MEDICATED WITH PERCOCET PER PRN ORDER FOR COMPLAINTS OF RIGHT LEG/FOOT PAIN, RATES PAIN 710. WILL MONITOR FOR EFFECTIVENESS.
--- NOTE | 2019-06-26 11:30 | NUR ---
PT RESTING IN BED, STATES EARLIER PERCOCET HELPED WITH RIGHT LEG/FOOT PAIN. WILL CONTINUE TO MONITOR.
[2019-06-26 12:00] VITALS: BP 113/74
--- NOTE | 2019-06-26 15:16 | NUR ---
Patient updated clinicals and updated med list/therapy notes faxed to [facility] to attempt to get auth for a saturday discharge. Waiting for auth
[2019-06-26 16:00] VITALS: BP 123/81
--- NOTE | 2019-06-26 16:22 | NUR ---
MEDICATED PT WITH PERCOCET AT THIS TIME FOR COMPLAINTS OF RIGHT LEG/FOOT PAIN., WILL MONITOR FOR EFFECTIVENESS. PT STATES "I COULD USE ABOUT 5 OF THESE" AND REQUESTING SOMETHING ADDITIONAL. DR ARORA INFORMED.
--- NOTE | 2019-06-26 16:30 | NUR ---
MADE AWARE BY NURSES AIDE, THAT WHILE SHE WAS IN GETTING PT'S VITAL SIGNS, PT STATED "THESE PERCOCET'S AREN'T DOING ANYTHING", SHE THEN NOTICED PT MAKE A PHONE CALL TO [facility], HEARD PT STATE "HEY, YOU GOT ANYTHING GOOD?" NURSING CARDING MACHINE OPERATOR AND DR ARORA MADE AWARE. PT TO BE MOVED TO 409 ONCE ROOM HAS BEEN CLEANED FOR CLOSER SUPERVISION.
[2019-06-26 20:00] VITALS: BP 123/70
--- NOTE | 2019-06-26 22:30 | NUR ---
PATIENT MEDICATED WITH PERCOCET PER PRN ORDER FOR C/O LEG PAIN. RATED PAIN A 10/10 WITH 10 BEING THE WORST. SEE EMAR. REINFORCED USE OF CALL LIGHT.
[2019-06-27] VITALS: BP 144/75
--- NOTE | 2019-06-27 01:04 | NUR ---
PATIENT RESTING QUIETLY. NO FURTHER C/O VOICED.
--- NOTE | 2019-06-27 04:47 | NUR ---
PERCOCET GIVEN PER PRN ORDER FOR C/O LEG PAIN. RATED PAIN A 10/10 WITH 10 BEING THE WORST. SEE EMAR. REINFORCED USE OF CALL LIGHT.
[2019-06-27 06:50] LABS: INTERNATIONAL NORM RATIO 1.1 (2.0-3.5)
[2019-06-27 08:00] VITALS: BP 129/78
--- NOTE | 2019-06-27 08:45 | NUR ---
PT C/O PAIN AT IV SITE. SITE IS RED AND WARM TO TOUCH. IV DISCONTINUED AND RESTARTED IN THE RIGHT ARM.
--- NOTE | 2019-06-27 09:14 | NUR ---
DR DUBOIS IN TO SEE PT AT THIS TIME.
[2019-06-27 12:00] VITALS: BP 119/80
[2019-06-27 16:00] VITALS: BP 115/49
[2019-06-27 20:00] VITALS: BP 140/88
--- NOTE | 2019-06-27 22:32 | NUR ---
PATIENT MEDICATED WITH PRN PERCOCET FOR 10/10 PAIN IN HIS LEGS. WILL MONITOR FOR EFFECTIVENESS.
--- NOTE | 2019-06-27 23:02 | NUR ---
PER PATIENT PRN PERCOCET EFFECTIVE.
[2019-06-28] VITALS: BP 114/74
--- NOTE | 2019-06-28 03:40 | NUR ---
24 HR chart check completed.
[2019-06-28 05:42] LABS: INTERNATIONAL NORM RATIO 1.3 (2.0-3.5)
[2019-06-28 08:00] VITALS: BP 117/77
--- NOTE | 2019-06-28 10:00 | NUR ---
MEDICATED WITH PERCOCET PER PRN ORDER FOR COMPLAINTS OF RIGHT LEG AND FOOT PAIN, RATES PAIN 910. WILL MONITOR FOR EFFECTIVENESS.
--- NOTE | 2019-06-28 10:28 | NUR ---
ROLO MADE AWARE OF CONSULT.
[2019-06-28 12:00] VITALS: BP 111/74
--- NOTE | 2019-06-28 12:05 | NUR ---
DR VALLES IN TO SEE PT AT THIS TIME.
--- NOTE | 2019-06-28 12:30 | NUR ---
PHYSICAL THERAPY PT SCREEN COMPLETED TODAY; PATIENT IS UP (I) IN THE ROOM WITH CRUTCHES WHEN I ARRIVED AND DEMONSTRATES SAFETY WITH THEM AND REQUESTS NO PT SERVICES. THANK YOU FOR REFERRAL WENDY PATEL PT
--- NOTE | 2019-06-28 14:14 | NUR ---
PT COMPLAINING OF ITCHING WHERE PREVIOUS IV WAS DUE TO ADHESIVE ALLERGY. REQUESTING HYDROCORTISONE CREAM. DR PARIS MADE AWARE. STATES SHE WILL ORDER IT.
[2019-06-28 16:00] VITALS: BP 129/73
[2019-06-28 20:00] VITALS: BP 92/53
[2019-06-29] VITALS: BP 120/65
[2019-06-29 06:59] LABS: INTERNATIONAL NORM RATIO 1.4 (2.0-3.5)
[2019-06-29 08:00] VITALS: BP 135/75
--- NOTE | 2019-06-29 09:55 | NUR ---
Occupational therapy orders received. Patient admitted for ulerceration, anterior aspect of the right ankle. Patient on 06/27/19 has an incision and bone debridement of the right ankle. Per discussion with patient, he is independent with the crutches for ADLs and functional mobility/transfers. Per patient, he does not need OT treatment. Patient to be discharged from OT orders. Thank you for the referral. Marilyn Cooper OTR/Donal
--- NOTE | 2019-06-29 11:00 | NUR ---
PT ON PHONE AT THIS TIMES NO SIGNS OF DITRESS, NO COMPLAINTS OF PAIN, PT DENIED NEED FOR PAIN MEDICATION AND WAVED ME OUT OF THE ROOM
[2019-06-29 12:00] VITALS: BP 129/67
--- NOTE | 2019-06-29 12:04 | NUR ---
CALLED [employer] TO CHECK FOR COVERAGE FOR LOVENOX 120 MG FOR 14 DAYS. PER PHARMACIST COPAY IS 1.25, DR TREJO NOTIFIED.
[2019-06-29 16:00] VITALS: BP 116/64
--- NOTE | 2019-06-29 17:12 | NUR ---
PT STATES HE IS GOING HOME ON DISCHARGE. WILL CONTINUE TO FOLLOW. WAITING ON BONE BX RESULTS.
[2019-06-29 20:00] VITALS: BP 110/61
[2019-06-30] VITALS: BP 113/73
--- NOTE | 2019-06-30 04:09 | NUR ---
24 HR chart check completed.
--- NOTE | 2019-06-30 05:58 | NUR ---
PRN PERCOCET GIVEN FOR RIGHT FOOT/LEG PAIN, PATIENT TOLERATED WELL. CALL LIGHT IS WITHIN REACH.
--- NOTE | 2019-06-30 06:49 | NUR ---
PERCOCET EFFECTIVE FOR PAIN
[2019-06-30 07:02] LABS: BASO % 0.6 % (0.0-1.0); EOS # 0.5 10*3/uL (0.0-0.4); EOS % 6.2 % (1.0-4.0); HEMOGLOBIN 12.2 g/dl (14.0-18.0); LYMPH # 1.7 10*3/uL (1.3-4.4); LYMPH % 23.9 % (27.0-41.0); MEAN CELL VOLUME 90.9 fl (80.0-94.0); MEAN CORPUSCULAR HGB 28.4 pg (27.0-31.0); MEAN CORPUSCULAR HGB CONC 31.3 g/dl (33.0-37.0); MEAN PLATELET VOLUME 9.1 fl (9.6-12.3); MONO # 0.6 10*3/uL (0.1-1.0); MONO % 8.2 % (3.0-9.0); NEUT # 4.4 10*3/uL (2.3-7.9); NEUT % 60.7 % (47.0-73.0); PLATELET COUNT AUTOMATED 259 10*3/uL (130-400); RED BLOOD COUNT 4.29 10*6/uL (4.50-5.90); RED CELL DISTRI WIDTH 13.5 % (0-14.5); WHITE BLOOD COUNT 7.2 10*3/uL (4.8-10.8)
[2019-06-30 07:22] LABS: BUN 11 mg/dl (7-24); CHLORIDE 105 mmol/L (98-107); CREATININE 1.28 mg/dL (0.70-1.30); POTASSIUM 4.1 mmol/L (3.5-5.1); SODIUM 139 mmol/L (136-145)
--- NOTE | 2019-06-30 07:35 | NUR ---
PT WAS ASLEEP DURING BEDSIDE REPORT. RESPIRATIONS EASY AND REGULAR. FACE RELAXED.
--- NOTE | 2019-06-30 07:35 | NUR ---
Shift chart check completed.24 HR chart check completed.
[2019-06-30 07:38] LABS: INTERNATIONAL NORM RATIO 1.4 (2.0-3.5)
[2019-06-30 08:00] VITALS: BP 110/68
--- NOTE | 2019-06-30 09:03 | NUR ---
ON ASSESSMENT PATIENT IS UP IN ROOM WITH CRUTCHES. HAD SOMETHING FOR PAIN BY PREVIOUS SHIFT AND ON ASSESSMENT SAYS HE'S "NOTHING TOUCHES IT". TOES ARE WARM.
--- NOTE | 2019-06-30 10:28 | NUR ---
Spoke to Dr. Alvarado regarding PICC line insertion. New orders received to have PICC inserted today. Nurse notified.
--- NOTE | 2019-06-30 10:30 | NUR ---
Specifications Writer in to see patient. Discussed short term rehab and he refuses. He states he will go stay with his mother and his sister who will be able to give his IV antibiotics. Discussed home health care services and he is agreeable. He would like to have [facility] as that is who he has had in the past. He has a pair of crutches he will use for ambulation. Discussed past history of drug abuse. He states he would never stick anything up his nose and he doesn't like needles. He states he drank beer and smoked marijuana in his younger years. Discussed PICC with Dr. Alvarado. Discussed po Zyvox and she states he will need probably IV Vanco. She will be making rounds after noon today. When medically stable and IV antibiotics with home health care is set up he will be discharged to home.
[2019-06-30 12:00] VITALS: BP 147/72
--- NOTE | 2019-06-30 15:05 | NUR ---
Patient has PICC line, awaiting IV antibiotic order from Dr. Alvarado.
--- NOTE | 2019-06-30 15:27 | NUR ---
VICE PRESIDENT OF NURSING spoke with Dr. Denton and notified Music Coordinator Lynne to check insurance for medication. -KARLEE Whittaker
--- NOTE | 2019-06-30 15:36 | NUR ---
Faxed [employer] to check cost of Cefazolin 2 GM IV Q12H. Awaiting response.
[2019-06-30 16:00] VITALS: BP 116/78
--- NOTE | 2019-06-30 18:27 | NUR ---
DISCONTINUED PERIPHERAL IV TO LEFT ARM FOR REDNESS AND LEAKAGE. AWAITING CXR RESULTS FOR PICC LINE PLACEMENT. PATIENT REFUSING NEW PERIPHERAL IV. UNABLE TO GIVE ABX AT THIS TIME.
[2019-06-30 20:00] VITALS: BP 108/71
[2019-06-30 20:40] LABS: URINE AMPHETAMINES < 1000 (1000ng/ml); URINE BARBITURATES < 200 (200ng/ml); URINE BENZODIAZEPINES > 200 (200ng/ml); URINE CANNABINOIDS (THC) < 50 (50ng/ml); URINE COCAINE < 300 (300ng/ml); URINE METHADONE < 300 (300ng/ml); URINE OPIATES < 300 (300ng/ml); URINE PHENCYCLIDINE < 25 (25ng/ml)
--- NOTE | 2019-06-30 21:18 | NUR ---
OK TO USE PICC LINE PER . SEE ORDER.
[2019-07-01] VITALS: BP 111/66
--- NOTE | 2019-07-01 06:39 | NUR ---
PATIENT LAYING IN BED ON CELL PHONE. IV ANTIBIOTIC INFUSING ORDERED. RESPIRATIONS EVEN AND UNLABORED. CALL LIGHT WITHIN REACH.
[2019-07-01 07:26] LABS: INTERNATIONAL NORM RATIO 1.4 (2.0-3.5)
[2019-07-01 08:00] VITALS: BP 114/68
--- NOTE | 2019-07-01 11:24 | NUR ---
Spoke to Kaia at [facility] regarding home IV antibiotics. Due to their contract with [facility] they are not able to provide services. She will forward the prescription to [facility]. Waiting for response from [facility].
[2019-07-01 12:00] VITALS: BP 122/87
--- NOTE | 2019-07-01 13:25 | NUR ---
Spoke to Vesta at [facility] regarding home IV antibiotics. They are unable to run cost at this time as they are not able to read the demographics sheet sent to them from [facility]. Faxed demographics sheet. Awaiting return call for cost.
--- NOTE | 2019-07-01 13:38 | NUR ---
Spoke to Dr. Alvarado regarding Nafcillin vs Cefazolin, doctor would like cost run on both prescriptions. Spoke to Vesta at [facility] and asked to run cost on both prescriptions. Dr. Alvarado stated she would call in the prescriptions if needed. Awaiting return call from Vesta with cost. Nafcillin would be 2 GM IV q4h through continuous infusion for 6 weeks. Cefazolin would be 2 GM IV q12h for 6 weeks.
--- NOTE | 2019-07-01 13:43 | NUR ---
Faxed home health order to [facility]. Awaiting response.
--- NOTE | 2019-07-01 14:19 | NUR ---
Fax not going through to [facility]. Spoke to Tori at [facility] and given another fax number to try. Fax confirmation.
--- NOTE | 2019-07-01 14:24 | NUR ---
Received call from Dr. Alvarado regarding patient is able to be discharged today if antibiotics are arranged for home. She states she notified Dr. Michaels to print the Cefazolin prescription.
--- NOTE | 2019-07-01 14:41 | NUR ---
Spoke to Vesta at [facility]. Cost of Cefazolin would be $1.25 a week. Waiting on prescription to fax for Cefazolin.
--- NOTE | 2019-07-01 14:57 | NUR ---
[facility] unable to take patient at this time. Discussed with patient other agencies and he chose [facility]. [place] referral.
[2019-07-01] MEDS ORDERED: ENOXAPARIN120 MG/0.2 SC (15:40)
[2019-07-01] MEDS ORDERED: COUMADIN6 M2 PO (15:40)
[2019-07-01] MEDS ORDERED: CEFAZOLIN2 GM/100 M IV (15:40)
--- NOTE | 2019-07-01 15:47 | NUR ---
Cefazolin prescription faxed to [facility]. Spoke to Vesta at [facility] and informed prescription was faxed. Brenda from [facility] will coordinate times with [facility]. Notified hospitalist nurse director of need for first dose while here. Care will be coordinated to start tomorrow per Brenda at [facility] and Vesta at [facility].
[2019-07-01 16:00] VITALS: BP 127/76
--- NOTE | 2019-07-01 17:08 | NUR ---
MEDICATED WITH PRN PO PERCOCET FOR RIGHT FOOT PAIN.
--- NOTE | 2019-07-01 17:25 | NUR ---
PATIENT RECEIVING DOSE OF IV KEFZOL REQUIRED BY HIS HOME INFUSION COMPANY TO BE GIVEN PRIOR TO DISCHARGE THIS EVENING.
--- NOTE | 2019-07-01 17:25 | NUR ---
Discharge instructions reviewed with patient/family. Patient receptive and verbalizes understanding. Follow-up care arranged. Written instructions given to patient/family. MARIE SCHUSTER
--- NOTE | 2019-07-01 18:00 | NUR ---
PATIENT DISCHARGED TO [facility] BY WHEELCHAIR, ACCOMPANIED BY [facility], FOR TRANSPORT HOME BY PRIVATE VEHICLE WITH HIS MOTHER.
[2019-08-05 16:05] LABS: ACID FAST CULTURE Negative (.)
[2019-09-09] MEDS ORDERED: TRAMADOL HCL50 MG PO (14:03)
[2019-09-09] MEDS ORDERED: DOXYCYCLINE100 M3 PO (14:05)
== END 2019-07-01 18:00 | disposition home or self-care (01) | DRG 856 ==
LOC: SDC 00:16 → 4E 11:18 → SDC 12:30 → 4E 17:54
PROVIDERS: Internal Medicine; Podiatrist; Student in an Organized Health Care Education/Training Program; ADMIT Internal Medicine
PROC: 0QBG0ZX Excision of Right Tibia, Open Approach, Diagnostic (ICD-10-PCS; principal; 2019-06-24)
PROC: 0QBG0ZZ Excision of Right Tibia, Open Approach (ICD-10-PCS; principal; 2019-06-24)
PROC: 02HV33Z Insertion of Infusion Device into Superior Vena Cava, Percutaneous Approach (ICD-10-PCS; 2019-06-30)
DX: T81.49XA Infection following a procedure, other surgical site, initial encounter (principal); N17.0 Acute kidney failure with tubular necrosis; M86.161 Other acute osteomyelitis, right tibia and fibula; M86.661 Other chronic osteomyelitis, right tibia and fibula; L03.115 Cellulitis of right lower limb; L97.919 Non-pressure chronic ulcer of unspecified part of right lower leg with unspecified severity; J44.9 Chronic obstructive pulmonary disease, unspecified; E66.9 Obesity, unspecified; F41.1 Generalized anxiety disorder; N18.3 Chronic kidney disease, stage 3 (moderate); I48.91 Unspecified atrial fibrillation; G43.909 Migraine, unspecified, not intractable, without status migrainosus; E11.22 Type 2 diabetes mellitus with diabetic chronic kidney disease; M19.071 Primary osteoarthritis, right ankle and foot; E11.65 Type 2 diabetes mellitus with hyperglycemia; E78.5 Hyperlipidemia, unspecified; E11.69 Type 2 diabetes mellitus with other specified complication; E11.621 Type 2 diabetes mellitus with foot ulcer; D64.9 Anemia, unspecified; E66.01 Morbid (severe) obesity due to excess calories; E55.9 Vitamin D deficiency, unspecified; R79.1 Abnormal coagulation profile; Y83.8 Other surgical procedures as the cause of abnormal reaction of the patient, or of later complication, without mention of misadventure at the time of the procedure; Y92.89 Other specified places as the place of occurrence of the external cause; Z95.2 Presence of prosthetic heart valve; Z87.891 Personal history of nicotine dependence; Z82.49 Family history of ischemic heart disease and other diseases of the circulatory system; Z83.3 Family history of diabetes mellitus; Z80.8 Family history of malignant neoplasm of other organs or systems; Z88.6 Allergy status to analgesic agent; Z88.4 Allergy status to anesthetic agent; Z88.5 Allergy status to narcotic agent; Z88.8 Allergy status to other drugs, medicaments and biological substances; Z91.09 Other allergy status, other than to drugs and biological substances; Z79.899 Other long term (current) drug therapy; Z79.01 Long term (current) use of anticoagulants; Z86.14 Personal history of Methicillin resistant Staphylococcus aureus infection; Z68.35 Body mass index [BMI] 35.0-35.9, adult

== ENCOUNTER 2019-07-04 21:15 | Emergency (ER) | payer MEDICARE ==
[~2019-07-04] VITALS: Ht 185.4 cm; Wt 113.4 kg
[~2019-07-04 21:15] MED LIST changes: +CEFAZOLIN2 GM/100 M IV; +COUMADIN6 M2 PO; +ENOXAPARIN120 MG/0.2 SC
[2019-07-04 21:19] VITALS: BP 134/88
== END 2019-07-04 22:18 | disposition home or self-care (01) ==
LOC: ED 21:15
DX: L53.9 Erythematous condition, unspecified (principal); L98.9 Disorder of the skin and subcutaneous tissue, unspecified; Z48.00 Encounter for change or removal of nonsurgical wound dressing; F17.200 Nicotine dependence, unspecified, uncomplicated; Z88.5 Allergy status to narcotic agent; Z91.048 Other nonmedicinal substance allergy status; Z88.6 Allergy status to analgesic agent; Z88.1 Allergy status to other antibiotic agents; Z88.8 Allergy status to other drugs, medicaments and biological substances; Z79.2 Long term (current) use of antibiotics; Z79.01 Long term (current) use of anticoagulants; Z79.899 Other long term (current) drug therapy

== ENCOUNTER 2019-07-14 20:00 | Emergency (ER) | payer MEDICARE ==
[~2019-07-14] VITALS: Ht 185.4 cm; Wt 113.4 kg
[2019-07-14 23:19] VITALS: BP 148/82
[2019-09-09] MEDS ORDERED: TRAMADOL HCL50 MG PO (14:03)
[2019-09-09] MEDS ORDERED: DOXYCYCLINE100 M3 PO (14:05)
== END 2019-07-15 00:04 | disposition home or self-care (01) ==
LOC: ED 20:00
DX: T82.898A Other specified complication of vascular prosthetic devices, implants and grafts, initial encounter (principal); I48.91 Unspecified atrial fibrillation; J44.9 Chronic obstructive pulmonary disease, unspecified; E11.22 Type 2 diabetes mellitus with diabetic chronic kidney disease; N18.3 Chronic kidney disease, stage 3 (moderate); E78.5 Hyperlipidemia, unspecified; G43.909 Migraine, unspecified, not intractable, without status migrainosus; E66.9 Obesity, unspecified; Z98.890 Other specified postprocedural states; Z79.899 Other long term (current) drug therapy; Z79.01 Long term (current) use of anticoagulants; Z68.35 Body mass index [BMI] 35.0-35.9, adult; Z87.891 Personal history of nicotine dependence; Z88.5 Allergy status to narcotic agent; Z88.6 Allergy status to analgesic agent; Z88.1 Allergy status to other antibiotic agents; Z88.4 Allergy status to anesthetic agent; Y92.89 Other specified places as the place of occurrence of the external cause

== ENCOUNTER → 2019-07-16 | Outpatient (CLI) | payer MEDICARE ==
[2019-07-16 10:06] VITALS: BP 117/66
== END | disposition home or self-care (01) ==
LOC: PICC 00:01
DX: Z45.2 Encounter for adjustment and management of vascular access device (principal); J44.9 Chronic obstructive pulmonary disease, unspecified; F41.9 Anxiety disorder, unspecified; F32.9 Major depressive disorder, single episode, unspecified; K21.9 Gastro-esophageal reflux disease without esophagitis; E11.9 Type 2 diabetes mellitus without complications; Z83.3 Family history of diabetes mellitus; Z82.49 Family history of ischemic heart disease and other diseases of the circulatory system

== ENCOUNTER → 2019-09-09 | Day surgery (SDC) | payer MEDICARE ==
[~2019-09-09] VITALS: Wt 113.4 kg
[~2019-09-09] MED LIST changes: +CIPROFLOXACIN750 MG PO; +Coumadin5 MG PO; +POTASSIUM CHLO20 ME3 PO; +PROTONIX TR40 M1 PO; +VITAMIN D5000 UNI1 PO
[2019-09-09 10:22] VITALS: BP 127/85
[2019-09-09 14:17] VITALS: BP 97/54
[2019-09-09 14:32] VITALS: BP 114/66
[2019-09-09 14:47] VITALS: BP 105/71
[2019-09-10 17:09] LABS: ACID FAST SPEC PROCESSING Concentration (.)
== END | disposition home or self-care (01) ==
LOC: SDC 09-04 13:15
PROVIDERS: Podiatrist
DX: S91.001A Unspecified open wound, right ankle, initial encounter (principal); M86.161 Other acute osteomyelitis, right tibia and fibula; I48.91 Unspecified atrial fibrillation; I11.0 Hypertensive heart disease with heart failure; I50.9 Heart failure, unspecified; E11.9 Type 2 diabetes mellitus without complications; K21.9 Gastro-esophageal reflux disease without esophagitis; J44.9 Chronic obstructive pulmonary disease, unspecified; F41.9 Anxiety disorder, unspecified; F32.9 Major depressive disorder, single episode, unspecified; Z95.2 Presence of prosthetic heart valve; X58.XXXA Exposure to other specified factors, initial encounter; Y93.89 Activity, other specified; Y92.89 Other specified places as the place of occurrence of the external cause; Y99.8 Other external cause status; Z79.899 Other long term (current) drug therapy; Z83.3 Family history of diabetes mellitus; Z82.49 Family history of ischemic heart disease and other diseases of the circulatory system; Z87.891 Personal history of nicotine dependence

== ENCOUNTER → 2019-10-06 | Outpatient (CLI) | payer MEDICARE ==
[2019-10-06 13:01] LABS: BASO # 0.1 10*3/uL (0.0-0.1); BASO % 0.6 % (0.0-1.0); EOS # 0.6 10*3/uL (0.0-0.4); EOS % 5.2 % (1.0-4.0); HEMATOCRIT 44.4 % (42.0-52.0); LYMPH # 2.7 10*3/uL (1.3-4.4); LYMPH % 25.9 % (27.0-41.0); MEAN CELL VOLUME 86.5 fl (80.0-94.0); MEAN CORPUSCULAR HGB 27.3 pg (27.0-31.0); MEAN CORPUSCULAR HGB CONC 31.5 g/dl (33.0-37.0); MEAN PLATELET VOLUME 9.1 fl (9.6-12.3); MONO # 0.8 10*3/uL (0.1-1.0); NEUT # 6.3 10*3/uL (2.3-7.9); NEUT % 59.9 % (47.0-73.0); PLATELET COUNT AUTOMATED 289 10*3/uL (130-400); RED BLOOD COUNT 5.13 10*6/uL (4.50-5.90); RED CELL DISTRI WIDTH 12.9 % (0-14.5); WHITE BLOOD COUNT 10.5 10*3/uL (4.8-10.8)
[2019-10-06 13:27] LABS: BUN 11 mg/dl (7-24); CHLORIDE 105 mmol/L (98-107); CREATININE 1.43 mg/dL (0.70-1.30); POTASSIUM 3.9 mmol/L (3.5-5.1); SODIUM 139 mmol/L (136-145)
== END | disposition home or self-care (01) ==
LOC: RESCLI 12:07
PROVIDERS: Internal Medicine
DX: Z01.818 Encounter for other preprocedural examination (principal); R05 Cough; R06.02 Shortness of breath; I48.91 Unspecified atrial fibrillation; F41.1 Generalized anxiety disorder; E78.5 Hyperlipidemia, unspecified; I25.10 Atherosclerotic heart disease of native coronary artery without angina pectoris; J44.9 Chronic obstructive pulmonary disease, unspecified; E11.22 Type 2 diabetes mellitus with diabetic chronic kidney disease; N18.9 Chronic kidney disease, unspecified; Z95.2 Presence of prosthetic heart valve; Z79.82 Long term (current) use of aspirin; Z79.51 Long term (current) use of inhaled steroids; Z79.899 Other long term (current) drug therapy; Z95.0 Presence of cardiac pacemaker

== ENCOUNTER → 2019-10-07 | Day surgery (SDC) | payer MEDICARE ==
[~2019-10-07] VITALS: Ht 185.4 cm; Wt 113.4 kg
[2019-10-07 08:14] VITALS: BP 131/69
[2019-10-07 09:36] VITALS: BP 114/66
[2019-10-07 09:51] VITALS: BP 124/74
[2019-10-07 10:06] VITALS: BP 113/69
[2019-10-08 13:06] LABS: ACID FAST SPEC PROCESSING Tissue Grinding (.)
== END | disposition home or self-care (01) ==
LOC: SDC 10-01 12:30
PROVIDERS: Podiatrist
DX: S91.001A Unspecified open wound, right ankle, initial encounter (principal); I48.91 Unspecified atrial fibrillation; F41.1 Generalized anxiety disorder; J44.9 Chronic obstructive pulmonary disease, unspecified; E78.5 Hyperlipidemia, unspecified; F41.9 Anxiety disorder, unspecified; F32.9 Major depressive disorder, single episode, unspecified; K21.9 Gastro-esophageal reflux disease without esophagitis; I12.9 Hypertensive chronic kidney disease with stage 1 through stage 4 chronic kidney disease, or unspecified chronic kidney disease; I50.9 Heart failure, unspecified; N18.2 Chronic kidney disease, stage 2 (mild); G43.909 Migraine, unspecified, not intractable, without status migrainosus; Z98.890 Other specified postprocedural states; Z88.8 Allergy status to other drugs, medicaments and biological substances; Z95.2 Presence of prosthetic heart valve; Z79.899 Other long term (current) drug therapy; Z79.82 Long term (current) use of aspirin; Z87.891 Personal history of nicotine dependence; X58.XXXA Exposure to other specified factors, initial encounter; Y93.89 Activity, other specified; Y92.89 Other specified places as the place of occurrence of the external cause; Y99.8 Other external cause status; Z82.49 Family history of ischemic heart disease and other diseases of the circulatory system; Z83.3 Family history of diabetes mellitus; Z80.8 Family history of malignant neoplasm of other organs or systems

== ENCOUNTER → 2019-10-12 | Outpatient (CLI) | payer MEDICARE | END | disposition home or self-care (01) | LOC: RESCLI 01:15 | DX: Z01.818 Encounter for other preprocedural examination (principal); I48.91 Unspecified atrial fibrillation; Z95.2 Presence of prosthetic heart valve; J44.9 Chronic obstructive pulmonary disease, unspecified; E11.22 Type 2 diabetes mellitus with diabetic chronic kidney disease; N18.9 Chronic kidney disease, unspecified; F41.1 Generalized anxiety disorder; Z79.899 Other long term (current) drug therapy; Z88.4 Allergy status to anesthetic agent; Z88.6 Allergy status to analgesic agent ==

== ENCOUNTER 2019-10-21 20:29 | Emergency (ER) | payer MEDICARE ==
[~2019-10-21] VITALS: Ht 185.4 cm; Wt 112.0 kg
[2019-10-21 20:32] VITALS: BP 128/82
== END 2019-10-21 22:20 | disposition home or self-care (01) ==
LOC: ED 20:29
DX: M79.661 Pain in right lower leg (principal); M79.604 Pain in right leg; J44.9 Chronic obstructive pulmonary disease, unspecified; K21.9 Gastro-esophageal reflux disease without esophagitis; E11.9 Type 2 diabetes mellitus without complications; F17.200 Nicotine dependence, unspecified, uncomplicated; Z79.899 Other long term (current) drug therapy; Z79.01 Long term (current) use of anticoagulants; Z88.6 Allergy status to analgesic agent; Z88.1 Allergy status to other antibiotic agents; Z88.8 Allergy status to other drugs, medicaments and biological substances

== ENCOUNTER 2020-05-03 05:42 | Inpatient (IN) | payer OTHER ==
[2020-05-03] VITALS (10 sets, daily range): BP systolic 98–126; BP diastolic 59–90
[~2020-05-03] VITALS: Ht 185.4 cm; Wt 115.2 kg
[2020-05-03 06:26] LABS: BASO # 0.1 10*3/uL (0.0-0.1); BASO % 0.6 % (0.0-1.0); EOS # 0.3 10*3/uL (0.0-0.4); EOS % 3.7 % (1.0-4.0); HEMATOCRIT 45.2 % (42.0-52.0); LYMPH # 2.6 10*3/uL (1.3-4.4); LYMPH % 30.5 % (27.0-41.0); MEAN CELL VOLUME 86.8 fl (80.0-94.0); MEAN CORPUSCULAR HGB 28.8 pg (27.0-31.0); MEAN CORPUSCULAR HGB CONC 33.2 g/dl (33.0-37.0); MEAN PLATELET VOLUME 9.2 fl (9.6-12.3); MONO # 0.6 10*3/uL (0.1-1.0); MONO % 7.2 % (3.0-9.0); NEUT % 57.7 % (47.0-73.0); PLATELET COUNT AUTOMATED 257 10*3/uL (130-400); RED BLOOD COUNT 5.21 10*6/uL (4.50-5.90); RED CELL DISTRI WIDTH 12.8 % (0-14.5); WHITE BLOOD COUNT 8.7 10*3/uL (4.8-10.8)
[2020-05-03 06:37] LABS: ACT PARTIAL THROMBO TIME 31.6 SECONDS (20.0-32.1); INTERNATIONAL NORM RATIO 1.4 (2.0-3.5)
[2020-05-03 06:38] LABS: ALBUMIN 3.8 gm/dl (3.1-4.5); ALKALINE PHOSPHATASE 135 U/L (45-117); BUN 14 mg/dl (7-24); CHLORIDE 104 mmol/L (98-107); SGOT/AST 22 IU/L (3-35); SGPT/ALT 28 U/L (12-78); SODIUM 138 mmol/L (136-145); TOTAL PROTEIN 7.6 gm/dL (6.4-8.2)
[2020-05-03 06:43] LABS: TROPONIN I < 0.015 ng/ml (<0.045)
[2020-05-03] MEDS ORDERED: IMDUR SA30 MG PO (09:28)
[2020-05-04] VITALS: BP 135/72
[2020-05-04 04:00] LABS: INTERNATIONAL NORM RATIO 2.2 (2.0-3.5)
[2020-05-04 04:06] LABS: ALBUMIN 3.9 gm/dl (3.1-4.5); CREATININE 1.73 mg/dL (0.70-1.30); POTASSIUM 3.8 mmol/L (3.5-5.1); TOTAL PROTEIN 7.8 gm/dL (6.4-8.2)
[2020-05-04 04:07] LABS: FREE T4 0.87 ng/dl (0.76-1.46)
[2020-05-04 04:12] LABS: THYROID STIM HORMONE (HS) 0.828 uIU/ml (0.358-4.75)
[2020-05-04 04:14] LABS: BASO % 0.2 % (0.0-1.0); EOS % 0.1 % (1.0-4.0); HEMATOCRIT 45.3 % (42.0-52.0); LYMPH # 0.7 10*3/uL (1.3-4.4); LYMPH % 3.4 % (27.0-41.0); MEAN CELL VOLUME 86.8 fl (80.0-94.0); MEAN CORPUSCULAR HGB 28.5 pg (27.0-31.0); MEAN CORPUSCULAR HGB CONC 32.9 g/dl (33.0-37.0); MEAN PLATELET VOLUME 9.3 fl (9.6-12.3); MONO # 0.5 10*3/uL (0.1-1.0); MONO % 2.4 % (3.0-9.0); NEUT # 17.7 10*3/uL (2.3-7.9); NEUT % 93.3 % (47.0-73.0); PLATELET COUNT AUTOMATED 266 10*3/uL (130-400); RED BLOOD COUNT 5.22 10*6/uL (4.50-5.90); RED CELL DISTRI WIDTH 13.5 % (0-14.5); WHITE BLOOD COUNT 18.9 10*3/uL (4.8-10.8)
[2020-05-04 04:17] LABS: PLATELET SUFFICIENCY NORMAL (NORMAL); TOTAL CELLS COUNTED 100 #CELLS
[2020-05-04 08:00] VITALS: BP 124/61
[2020-05-04 08:50] LABS: VITAMIN D, 25-HYDROXY 37.3 ng/mL (30-100)
[2020-05-04 12:00] VITALS: BP 117/69
[2020-05-04 16:00] VITALS: BP 140/57
[2020-05-04 20:00] VITALS: BP 124/57
[2020-05-05 05:57] LABS: HEMATOCRIT 45.6 % (42.0-52.0); MEAN CELL VOLUME 88.2 fl (80.0-94.0); MEAN CORPUSCULAR HGB 28.6 pg (27.0-31.0); MEAN CORPUSCULAR HGB CONC 32.5 g/dl (33.0-37.0); MEAN PLATELET VOLUME 9.3 fl (9.6-12.3); PLATELET COUNT AUTOMATED 256 10*3/uL (130-400); RED BLOOD COUNT 5.17 10*6/uL (4.50-5.90); RED CELL DISTRI WIDTH 13.6 % (0-14.5); WHITE BLOOD COUNT 19.1 10*3/uL (4.8-10.8)
[2020-05-05 06:09] LABS: ALBUMIN 3.8 gm/dl (3.1-4.5); BUN 23 mg/dl (7-24); CHLORIDE 105 mmol/L (98-107); POTASSIUM 4.3 mmol/L (3.5-5.1); SODIUM 135 mmol/L (136-145)
[2020-05-05 06:13] LABS: ALKALINE PHOSPHATASE 108 U/L (45-117); CREATININE 1.35 mg/dL (0.70-1.30); SGOT/AST 35 IU/L (3-35); SGPT/ALT 24 U/L (12-78); TOTAL PROTEIN 7.4 gm/dL (6.4-8.2)
[2020-05-05 06:16] LABS: ACT PARTIAL THROMBO TIME 47.5 SECONDS (20.0-32.1); INTERNATIONAL NORM RATIO 2.7 (2.0-3.5)
[2020-05-05 07:56] LABS: PLATELET SUFFICIENCY NORMAL (NORMAL); TOTAL CELLS COUNTED 100 #CELLS
[2020-05-05 08:00] VITALS: BP 136/74
[2020-05-05 12:00] VITALS: BP 123/71
[2020-05-05 16:00] VITALS: BP 109/63
[2020-05-05 20:00] VITALS: BP 132/72
[2020-05-06] VITALS: BP 140/65
[2020-05-06 06:43] LABS: BASO % 0.1 % (0.0-1.0); EOS # 0.1 10*3/uL (0.0-0.4); EOS % 0.6 % (1.0-4.0); HEMATOCRIT 46.8 % (42.0-52.0); LYMPH # 2.3 10*3/uL (1.3-4.4); LYMPH % 16.7 % (27.0-41.0); MEAN CELL VOLUME 88.3 fl (80.0-94.0); MEAN CORPUSCULAR HGB 28.5 pg (27.0-31.0); MEAN CORPUSCULAR HGB CONC 32.3 g/dl (33.0-37.0); MEAN PLATELET VOLUME 9.5 fl (9.6-12.3); MONO # 1.1 10*3/uL (0.1-1.0); MONO % 7.8 % (3.0-9.0); NEUT # 10.3 10*3/uL (2.3-7.9); NEUT % 73.9 % (47.0-73.0); PLATELET COUNT AUTOMATED 231 10*3/uL (130-400); RED CELL DISTRI WIDTH 13.8 % (0-14.5)
[2020-05-06 06:50] LABS: INTERNATIONAL NORM RATIO 3.3 (2.0-3.5)
[2020-05-06 06:53] LABS: CREATININE 1.5 mg/dL (0.70-1.30)
[2020-05-06 07:05] LABS: POTASSIUM 4.4 mmol/L (3.5-5.1)
[2020-05-06 08:00] VITALS: BP 122/81
[2020-05-06] MEDS ORDERED: PREDNISONE10 MG PO (11:55)
[2020-05-06] MEDS ORDERED: VIBRAMYCIN100 MG PO (11:55)
[2020-05-06] MEDS ORDERED: VENTOLIN 02.5 MG/3 M NEB (11:55)
== END 2020-05-06 13:15 | disposition home or self-care (01) | DRG 191 ==
LOC: ED 05:42 → EDHOLD 08:21 → 5E 08:21
PROVIDERS: Emergency Medicine; Internal Medicine; Registered Nurse; ADMIT Family Medicine
DX: J44.1 Chronic obstructive pulmonary disease with (acute) exacerbation (principal); I48.21 Permanent atrial fibrillation; J20.9 Acute bronchitis, unspecified; J44.0 Chronic obstructive pulmonary disease with (acute) lower respiratory infection; R79.1 Abnormal coagulation profile; N18.3 Chronic kidney disease, stage 3 (moderate); E11.65 Type 2 diabetes mellitus with hyperglycemia; E66.9 Obesity, unspecified; F41.1 Generalized anxiety disorder; E11.22 Type 2 diabetes mellitus with diabetic chronic kidney disease; F32.9 Major depressive disorder, single episode, unspecified; E78.00 Pure hypercholesterolemia, unspecified; I87.2 Venous insufficiency (chronic) (peripheral); G43.909 Migraine, unspecified, not intractable, without status migrainosus; E78.5 Hyperlipidemia, unspecified; T38.0X5A Adverse effect of glucocorticoids and synthetic analogues, initial encounter; Y92.238 Other place in hospital as the place of occurrence of the external cause; D72.829 Elevated white blood cell count, unspecified; S80.811A Abrasion, right lower leg, initial encounter; X58.XXXA Exposure to other specified factors, initial encounter; Y93.89 Activity, other specified; Y92.89 Other specified places as the place of occurrence of the external cause; Y99.8 Other external cause status; Z95.4 Presence of other heart-valve replacement; Z68.35 Body mass index [BMI] 35.0-35.9, adult; Z88.5 Allergy status to narcotic agent; Z88.8 Allergy status to other drugs, medicaments and biological substances; Z88.1 Allergy status to other antibiotic agents; Z88.6 Allergy status to analgesic agent; Z88.4 Allergy status to anesthetic agent; Z91.09 Other allergy status, other than to drugs and biological substances; Z87.891 Personal history of nicotine dependence; Z80.8 Family history of malignant neoplasm of other organs or systems; Z82.49 Family history of ischemic heart disease and other diseases of the circulatory system; Z83.3 Family history of diabetes mellitus; Z79.899 Other long term (current) drug therapy; Z79.01 Long term (current) use of anticoagulants; Z95.0 Presence of cardiac pacemaker; Z82.5 Family history of asthma and other chronic lower respiratory diseases

== ENCOUNTER → 2020-05-27 | Outpatient (CLI) | payer OTHER ==
[~2020-05-27] MED LIST changes: +VENTOLIN 02.5 MG/3 M NEB
[2020-05-27 14:02] LABS: POTASSIUM 4.7 mmol/L (3.5-5.1)
[2020-05-27 16:01] LABS: BASO % 0.1 % (0.0-1.0); EOS # 0.2 10*3/uL (0.0-0.4); EOS % 2.2 % (1.0-4.0); HEMATOCRIT 46.1 % (42.0-52.0); LYMPH # 2.1 10*3/uL (1.3-4.4); LYMPH % 22.1 % (27.0-41.0); MEAN CORPUSCULAR HGB 28.6 pg (27.0-31.0); MEAN CORPUSCULAR HGB CONC 32.5 g/dl (33.0-37.0); MONO # 0.6 10*3/uL (0.1-1.0); MONO % 6.7 % (3.0-9.0); NEUT # 6.6 10*3/uL (2.3-7.9); NEUT % 68.6 % (47.0-73.0); PLATELET COUNT AUTOMATED 240 10*3/uL (130-400); RED BLOOD COUNT 5.24 10*6/uL (4.50-5.90); RED CELL DISTRI WIDTH 13.3 % (0-14.5); WHITE BLOOD COUNT 9.6 10*3/uL (4.8-10.8)
== END | disposition home or self-care (01) ==
LOC: COVID19 00:25 → LAB 00:25 → COVID19 10:00
PROVIDERS: ATTEND Podiatrist
DX: Z01.812 Encounter for preprocedural laboratory examination (principal); Z20.828 Contact with and (suspected) exposure to other viral communicable diseases; Z95.0 Presence of cardiac pacemaker; Z95.1 Presence of aortocoronary bypass graft

== ENCOUNTER → 2020-06-01 | Day surgery (SDC) | payer OTHER ==
[2020-05-27 14:11] VITALS: BP 136/103
[~2020-06-01] VITALS: Ht 185.4 cm; Wt 113.4 kg
[2020-06-01 06:58] VITALS: BP 105/66
[2020-06-01 08:11] VITALS: BP 116/55
[2020-06-01 08:25] VITALS: BP 113/81
[2020-06-01 08:40] VITALS: BP 129/82
[2020-06-01 08:53] VITALS: BP 117/77
[2020-06-02 14:11] LABS: ACID FAST SPEC PROCESSING Tissue Grinding (.)
== END | disposition home or self-care (01) ==
LOC: SDC 05-27 12:30
PROVIDERS: ATTEND Podiatrist
DX: L97.312 Non-pressure chronic ulcer of right ankle with fat layer exposed (principal); M86.161 Other acute osteomyelitis, right tibia and fibula; I48.91 Unspecified atrial fibrillation; F41.9 Anxiety disorder, unspecified; F32.9 Major depressive disorder, single episode, unspecified; E78.5 Hyperlipidemia, unspecified; I11.0 Hypertensive heart disease with heart failure; I50.9 Heart failure, unspecified; J44.9 Chronic obstructive pulmonary disease, unspecified; E11.9 Type 2 diabetes mellitus without complications; Z95.0 Presence of cardiac pacemaker; Z79.82 Long term (current) use of aspirin; Z79.899 Other long term (current) drug therapy; Z98.890 Other specified postprocedural states; Z95.2 Presence of prosthetic heart valve; Z87.891 Personal history of nicotine dependence; Z83.3 Family history of diabetes mellitus; Z82.49 Family history of ischemic heart disease and other diseases of the circulatory system; Z88.8 Allergy status to other drugs, medicaments and biological substances

== ENCOUNTER → 2020-07-08 | Outpatient (CLI) | payer OTHER | END | disposition home or self-care (01) | LOC: COVID19 07-01 02:26 | PROVIDERS: ATTEND Podiatrist | DX: Z01.812 Encounter for preprocedural laboratory examination (principal); Z20.828 Contact with and (suspected) exposure to other viral communicable diseases ==

== ENCOUNTER → 2020-07-13 | Day surgery (SDC) | payer OTHER ==
[~2020-07-13] VITALS: Ht 185.4 cm; Wt 111.1 kg
[2020-07-13 09:01] VITALS: BP 121/78
[2020-07-13 10:08] VITALS: BP 100/65
[2020-07-13 10:23] VITALS: BP 103/60
[2020-07-13 10:38] VITALS: BP 101/64
[2020-07-14 12:07] LABS: ACID FAST SPEC PROCESSING Tissue Grinding (.)
== END | disposition home or self-care (01) ==
LOC: CANPRESDC → SDC 07-01 13:15
PROVIDERS: ATTEND Podiatrist
DX: S91.001A Unspecified open wound, right ankle, initial encounter (principal); L97.312 Non-pressure chronic ulcer of right ankle with fat layer exposed; J44.9 Chronic obstructive pulmonary disease, unspecified; E11.9 Type 2 diabetes mellitus without complications; K21.9 Gastro-esophageal reflux disease without esophagitis; F41.9 Anxiety disorder, unspecified; I48.91 Unspecified atrial fibrillation; F32.9 Major depressive disorder, single episode, unspecified; E78.5 Hyperlipidemia, unspecified; Z87.891 Personal history of nicotine dependence; Z98.890 Other specified postprocedural states; Z95.5 Presence of coronary angioplasty implant and graft; Z79.899 Other long term (current) drug therapy; Z88.8 Allergy status to other drugs, medicaments and biological substances; Z83.3 Family history of diabetes mellitus; Z82.49 Family history of ischemic heart disease and other diseases of the circulatory system; X58.XXXA Exposure to other specified factors, initial encounter; Y93.89 Activity, other specified; Y92.89 Other specified places as the place of occurrence of the external cause; Y99.8 Other external cause status

== ENCOUNTER 2020-11-04 13:18 | Emergency (ER) | payer OTHER ==
[~2020-11-04] VITALS: Ht 185.4 cm; Wt 107.5 kg
[2020-11-04 13:20] VITALS: BP 125/87
[2020-11-04 13:56] LABS: BASO # 0.1 10*3/uL (0.0-0.1); BASO % 0.5 % (0.0-1.0); EOS # 0.3 10*3/uL (0.0-0.4); EOS % 2.9 % (1.0-4.0); HEMATOCRIT 45.4 % (42.0-52.0); LYMPH # 2.5 10*3/uL (1.3-4.4); LYMPH % 26.1 % (27.0-41.0); MEAN CELL VOLUME 86.5 fl (80.0-94.0); MEAN CORPUSCULAR HGB 27.8 pg (27.0-31.0); MEAN CORPUSCULAR HGB CONC 32.2 g/dl (33.0-37.0); MEAN PLATELET VOLUME 8.8 fl (9.6-12.3); MONO # 0.7 10*3/uL (0.1-1.0); MONO % 7.8 % (3.0-9.0); NEUT # 5.8 10*3/uL (2.3-7.9); NEUT % 61.9 % (47.0-73.0); PLATELET COUNT AUTOMATED 256 10*3/uL (130-400); RED BLOOD COUNT 5.25 10*6/uL (4.50-5.90); RED CELL DISTRI WIDTH 13.2 % (0-14.5); WHITE BLOOD COUNT 9.4 10*3/uL (4.8-10.8)
[2020-11-04 14:08] LABS: BUN 11 mg/dl (7-24); CHLORIDE 105 mmol/L (98-107); POTASSIUM 3.5 mmol/L (3.5-5.1); SODIUM 138 mmol/L (136-145)
[2020-11-04 14:09] LABS: ACT PARTIAL THROMBO TIME 28.3 SECONDS (20.0-32.1); INTERNATIONAL NORM RATIO 1.1 (2.0-3.5)
== END 2020-11-04 15:41 | disposition home or self-care (01) ==
LOC: ED 13:18
PROVIDERS: Emergency Medicine
DX: S00.01XA Abrasion of scalp, initial encounter (principal); E11.22 Type 2 diabetes mellitus with diabetic chronic kidney disease; N18.30 Chronic kidney disease, stage 3 unspecified; I48.91 Unspecified atrial fibrillation; J44.9 Chronic obstructive pulmonary disease, unspecified; E78.5 Hyperlipidemia, unspecified; G43.909 Migraine, unspecified, not intractable, without status migrainosus; E66.9 Obesity, unspecified; F32.9 Major depressive disorder, single episode, unspecified; Z88.5 Allergy status to narcotic agent; Z91.048 Other nonmedicinal substance allergy status; Z88.8 Allergy status to other drugs, medicaments and biological substances; Z88.4 Allergy status to anesthetic agent; Z79.899 Other long term (current) drug therapy; Z79.01 Long term (current) use of anticoagulants; Z68.30 Body mass index [BMI] 30.0-30.9, adult; Z98.890 Other specified postprocedural states; Z68.35 Body mass index [BMI] 35.0-35.9, adult; W00.0XXA Fall on same level due to ice and snow, initial encounter; Y93.89 Activity, other specified; Y92.89 Other specified places as the place of occurrence of the external cause; Y99.8 Other external cause status

== ENCOUNTER 2021-05-05 16:38 | Emergency (ER) | payer OTHER ==
[~2021-05-05] VITALS: Ht 154.9 cm; Wt 106.1 kg
[~2021-05-05 16:38] MED LIST changes: +DOXYCYCLINE100 MG PO; +NEURONTIN300 MG PO
[2021-05-05 16:44] VITALS: BP 140/79
== END 2021-05-05 19:18 | disposition home or self-care (01) ==
LOC: ED 16:38
DX: S61.211A Laceration without foreign body of left index finger without damage to nail, initial encounter (principal); Z79.01 Long term (current) use of anticoagulants; Z79.82 Long term (current) use of aspirin; Z95.0 Presence of cardiac pacemaker; Z88.5 Allergy status to narcotic agent; Z91.048 Other nonmedicinal substance allergy status; Z88.6 Allergy status to analgesic agent; Z88.1 Allergy status to other antibiotic agents; Z88.4 Allergy status to anesthetic agent; Z79.899 Other long term (current) drug therapy; Z79.2 Long term (current) use of antibiotics; Z87.891 Personal history of nicotine dependence; W29.8XXA Contact with other powered hand tools and household machinery, initial encounter; Y93.89 Activity, other specified; Y92.89 Other specified places as the place of occurrence of the external cause; Y99.8 Other external cause status

== ENCOUNTER 2021-06-07 20:18 | Emergency (ER) | payer OTHER ==
[~2021-06-07] VITALS: Ht 185.4 cm; Wt 105.2 kg
[2021-06-07 21:31] VITALS: BP 118/79
[2021-06-08] MEDS ORDERED: AMOXICILLIN500 M2 PO (02:41)
== END 2021-06-08 02:59 | disposition home or self-care (01) ==
LOC: ED 20:18
DX: S01.531A Puncture wound without foreign body of lip, initial encounter (principal); S01.83XA Puncture wound without foreign body of other part of head, initial encounter; G43.909 Migraine, unspecified, not intractable, without status migrainosus; J44.9 Chronic obstructive pulmonary disease, unspecified; Z87.891 Personal history of nicotine dependence; Z79.01 Long term (current) use of anticoagulants; Z79.899 Other long term (current) drug therapy; Z88.5 Allergy status to narcotic agent; Z88.1 Allergy status to other antibiotic agents; Z88.6 Allergy status to analgesic agent; V87.8XXA Person injured in other specified noncollision transport accidents involving motor vehicle (traffic), initial encounter; Y93.89 Activity, other specified; Y92.89 Other specified places as the place of occurrence of the external cause; Y99.9 Unspecified external cause status

== ENCOUNTER → 2021-09-07 | Outpatient (CLI) | payer OTHER ==
[~2021-09-07] MED LIST changes: +AMOXICILLIN500 M2 PO
== END | disposition home or self-care (01) ==
LOC: CARD 01:04
PROVIDERS: ATTEND Internal Medicine Cardiovascular Disease
DX: R07.89 Other chest pain (principal); R06.02 Shortness of breath; I49.5 Sick sinus syndrome; Z95.0 Presence of cardiac pacemaker; Z95.2 Presence of prosthetic heart valve

== ENCOUNTER 2022-06-24 15:46 | Inpatient (IN) | payer OTHER ==
[~2022-06-24] VITALS: Ht 185.4 cm; Wt 112.0 kg
[2022-06-24 15:55] VITALS: BP 118/83
[2022-06-24 16:29] LABS: BASO # 0.1 10*3/uL (0.0-0.1); BASO % 0.4 % (0.0-1.0); EOS # 0.4 10*3/uL (0.0-0.4); EOS % 3.8 % (1.0-4.0); HEMATOCRIT 42.6 % (42.0-52.0); LYMPH # 2.2 10*3/uL (1.3-4.4); LYMPH % 19.2 % (27.0-41.0); MEAN CELL VOLUME 85.5 fl (80.0-94.0); MEAN CORPUSCULAR HGB 29.1 pg (27.0-31.0); MEAN PLATELET VOLUME 8.9 fl (9.6-12.3); MONO # 0.9 10*3/uL (0.1-1.0); MONO % 8.2 % (3.0-9.0); NEUT # 7.7 10*3/uL (2.3-7.9); NEUT % 68.1 % (47.0-73.0); PLATELET COUNT AUTOMATED 257 10*3/uL (130-400); RED BLOOD COUNT 4.98 10*6/uL (4.50-5.90); WHITE BLOOD COUNT 11.3 10*3/uL (4.8-10.8)
[2022-06-24 16:49] LABS: ALKALINE PHOSPHATASE 147 U/L (45-117); BUN 14 mg/dl (7-24); CHLORIDE 107 mmol/L (98-107); CREATININE 1.22 mg/dL (0.70-1.30); POTASSIUM 3.7 mmol/L (3.5-5.1); SGOT/AST 20 IU/L (3-35); SGPT/ALT 28 U/L (12-78); SODIUM 139 mmol/L (136-145); TOTAL PROTEIN 7.3 gm/dL (6.4-8.2)
[2022-06-24 18:00] VITALS: BP 110/75
[2022-06-24] MEDS ORDERED: PROTONIX40 MG PO (19:14)
[2022-06-24] MEDS ORDERED: NADOLOL20 MG PO (19:19)
[2022-06-24] MEDS ORDERED: ZYPREXA5 M1 PO (19:22)
[2022-06-24] MEDS ORDERED: BRILINTA90 M1 PO (19:23)
[2022-06-24] MEDS ORDERED: REGLAN10 M1 PO (19:29)
[2022-06-24] MEDS ORDERED: TELMISARTAN-HC1 EAC1 PO (19:30)
[2022-06-24] MEDS ORDERED: METOPROLOL SUCC25 M2 PO (19:31)
[2022-06-24 20:00] VITALS: BP 124/90
[2022-06-24] MEDS ORDERED: ATORVASTATIN CA40 M1 PO (20:39)
[2022-06-25] VITALS (8 sets, daily range): BP systolic 100–138; BP diastolic 44–88
[2022-06-25 07:05] LABS: BASO % 0.5 % (0.0-1.0); EOS # 0.4 10*3/uL (0.0-0.4); EOS % 4.3 % (1.0-4.0); HEMATOCRIT 42.1 % (42.0-52.0); LYMPH # 2.6 10*3/uL (1.3-4.4); LYMPH % 29.6 % (27.0-41.0); MEAN CORPUSCULAR HGB 28.9 pg (27.0-31.0); MEAN CORPUSCULAR HGB CONC 33.3 g/dl (33.0-37.0); MEAN PLATELET VOLUME 9.2 fl (9.6-12.3); MONO # 0.7 10*3/uL (0.1-1.0); MONO % 8.4 % (3.0-9.0); NEUT # 5.1 10*3/uL (2.3-7.9); NEUT % 56.9 % (47.0-73.0); PLATELET COUNT AUTOMATED 230 10*3/uL (130-400); RED BLOOD COUNT 4.84 10*6/uL (4.50-5.90); RED CELL DISTRI WIDTH 12.9 % (0-14.5); WHITE BLOOD COUNT 8.9 10*3/uL (4.8-10.8)
[2022-06-25 07:15] LABS: ACT PARTIAL THROMBO TIME 27.1 SECONDS (20.0-32.1); INTERNATIONAL NORM RATIO 0.9 (2.0-3.5)
[2022-06-25 07:28] LABS: BUN 16 mg/dl (7-24); CHLORIDE 106 mmol/L (98-107); CHOLESTEROL 143 mg/dL (<200); CREATININE 1.31 mg/dL (0.70-1.30); SGOT/AST 21 IU/L (3-35); SGPT/ALT 28 U/L (12-78); SODIUM 140 mmol/L (136-145); TRIGLYCERIDES 169 mg/dl (<150)
[2022-06-25 07:32] LABS: ALKALINE PHOSPHATASE 130 U/L (45-117); FREE T4 0.96 ng/dl (0.76-1.46); LDL CHOLESTEROL 71 mg/dL (9-159)
[2022-06-26] VITALS: BP 103/48
[2022-06-26 06:33] LABS: BUN 18 mg/dl (7-24); CHLORIDE 111 mmol/L (98-107); CREATININE 1.29 mg/dL (0.70-1.30); POTASSIUM 4.6 mmol/L (3.5-5.1); SODIUM 145 mmol/L (136-145)
[2022-06-26 06:40] LABS: BASO % 0.5 % (0.0-1.0); EOS # 0.4 10*3/uL (0.0-0.4); EOS % 4.6 % (1.0-4.0); HEMATOCRIT 38.5 % (42.0-52.0); LYMPH # 2.1 10*3/uL (1.3-4.4); LYMPH % 25.8 % (27.0-41.0); MEAN CELL VOLUME 88.9 fl (80.0-94.0); MEAN CORPUSCULAR HGB 28.9 pg (27.0-31.0); MEAN CORPUSCULAR HGB CONC 32.5 g/dl (33.0-37.0); MEAN PLATELET VOLUME 9.2 fl (9.6-12.3); MONO # 0.6 10*3/uL (0.1-1.0); MONO % 7.6 % (3.0-9.0); NEUT % 61.1 % (47.0-73.0); PLATELET COUNT AUTOMATED 222 10*3/uL (130-400); RED BLOOD COUNT 4.33 10*6/uL (4.50-5.90); RED CELL DISTRI WIDTH 12.9 % (0-14.5); WHITE BLOOD COUNT 8.2 10*3/uL (4.8-10.8)
[2022-06-26 08:00] VITALS: BP 108/67
[2022-06-26 12:00] VITALS: BP 105/69
[2022-06-26 16:00] VITALS: BP 128/80
[2022-06-26 20:00] VITALS: BP 104/71
[2022-06-27] VITALS: BP 115/65
[2022-06-27 03:47] LABS: BASO % 0.5 % (0.0-1.0); EOS # 0.5 10*3/uL (0.0-0.4); EOS % 5.9 % (1.0-4.0); HEMATOCRIT 38.6 % (42.0-52.0); LYMPH # 2.2 10*3/uL (1.3-4.4); LYMPH % 25.1 % (27.0-41.0); MEAN CELL VOLUME 87.3 fl (80.0-94.0); MEAN CORPUSCULAR HGB 29.2 pg (27.0-31.0); MEAN CORPUSCULAR HGB CONC 33.4 g/dl (33.0-37.0); MEAN PLATELET VOLUME 8.9 fl (9.6-12.3); MONO # 0.6 10*3/uL (0.1-1.0); MONO % 6.9 % (3.0-9.0); NEUT # 5.3 10*3/uL (2.3-7.9); NEUT % 61.3 % (47.0-73.0); PLATELET COUNT AUTOMATED 211 10*3/uL (130-400); RED BLOOD COUNT 4.42 10*6/uL (4.50-5.90); RED CELL DISTRI WIDTH 13.1 % (0-14.5); WHITE BLOOD COUNT 8.6 10*3/uL (4.8-10.8)
[2022-06-27 03:58] LABS: BUN 13 mg/dl (7-24); CHLORIDE 111 mmol/L (98-107); CREATININE 1.35 mg/dL (0.70-1.30); POTASSIUM 4.2 mmol/L (3.5-5.1); SODIUM 143 mmol/L (136-145)
[2022-06-27 08:00] VITALS: BP 133/80
[2022-06-27 12:00] VITALS: BP 114/71
[2022-06-27 16:00] VITALS: BP 182/77
[2022-06-27 20:00] VITALS: BP 105/63
[2022-06-28] VITALS: BP 104/51
[2022-06-28 08:00] VITALS: BP 120/69
[2022-06-28 12:00] VITALS: BP 117/70
[2022-06-28] MEDS ORDERED: VANCO 1.751.75 GM/25 IV (13:09)
[2022-06-28] MEDS ORDERED: ZOSYN 3.373.375 GM/1 IV (13:09)
[2022-06-28 16:00] VITALS: BP 99/55
[2022-06-28 20:00] VITALS: BP 125/70
[2022-06-29] VITALS: BP 117/80
== END 2022-06-29 01:01 | disposition short-term general hospital (02) | DRG 576 ==
LOC: ED 15:46 → 5E 17:06 → EDHOLD 17:06 → 5E 18:21
PROVIDERS: Internal Medicine; Nurse Practitioner Family; Student in an Organized Health Care Education/Training Program; ADMIT Internal Medicine; ATTEND Internal Medicine
PROC: 0LBN0ZZ Excision of Right Lower Leg Tendon, Open Approach (ICD-10-PCS; principal; 2022-06-25)
PROC: 0HRKXK3 Replacement of Right Lower Leg Skin with Nonautologous Tissue Substitute, Full Thickness, External Approach (ICD-10-PCS; 2022-06-25)
DX: S81.801A Unspecified open wound, right lower leg, initial encounter (principal); I21.4 Non-ST elevation (NSTEMI) myocardial infarction; L02.415 Cutaneous abscess of right lower limb; E66.9 Obesity, unspecified; F41.1 Generalized anxiety disorder; G43.909 Migraine, unspecified, not intractable, without status migrainosus; J44.9 Chronic obstructive pulmonary disease, unspecified; I48.91 Unspecified atrial fibrillation; K21.9 Gastro-esophageal reflux disease without esophagitis; D72.829 Elevated white blood cell count, unspecified; E11.65 Type 2 diabetes mellitus with hyperglycemia; E11.22 Type 2 diabetes mellitus with diabetic chronic kidney disease; N18.31 Chronic kidney disease, stage 3a; Z88.6 Allergy status to analgesic agent; Z88.1 Allergy status to other antibiotic agents; Z88.8 Allergy status to other drugs, medicaments and biological substances; Z95.2 Presence of prosthetic heart valve; Z83.3 Family history of diabetes mellitus; Z82.49 Family history of ischemic heart disease and other diseases of the circulatory system; X58.XXXA Exposure to other specified factors, initial encounter; Y93.89 Activity, other specified; Y92.89 Other specified places as the place of occurrence of the external cause; Y99.8 Other external cause status

== ENCOUNTER → 2022-07-11 | Outpatient (CLI) | payer OTHER ==
[~2022-07-11] MED LIST changes: +ATORVASTATIN CA40 M1 PO; +BRILINTA90 M1 PO; +METOPROLOL SUCC25 M2 PO; +NADOLOL20 MG PO; +REGLAN10 M1 PO; +TELMISARTAN-HC1 EAC1 PO; +VANCO 1.751.75 GM/25 IV; +ZOSYN 3.373.375 GM/1 IV; +ZYPREXA5 M1 PO
[2022-07-11 14:08] LABS: INTERNATIONAL NORM RATIO 1.4 (2.0-3.5)
== END | disposition home or self-care (01) ==
LOC: LAB 13:19
PROVIDERS: ATTEND Specialist
DX: I34.89 Other nonrheumatic mitral valve disorders (principal)

== ENCOUNTER → 2022-07-13 | Outpatient (CLI) | payer OTHER ==
[2022-07-13 11:00] LABS: INTERNATIONAL NORM RATIO 1.9 (2.0-3.5)
== END | disposition home or self-care (01) ==
LOC: LAB 10:18
PROVIDERS: ATTEND Specialist
DX: I34.0 Nonrheumatic mitral (valve) insufficiency (principal); I82.90 Acute embolism and thrombosis of unspecified vein

== ENCOUNTER → 2022-07-16 | Outpatient (CLI) | payer OTHER ==
[2022-07-16 11:41] LABS: INTERNATIONAL NORM RATIO 2.8 (2.0-3.5)
== END | disposition home or self-care (01) ==
LOC: WOUNDCARE 01:01 → LAB 01:01 → WOUNDCARE 14:26
PROVIDERS: ATTEND Podiatrist Foot & Ankle Surgery
DX: T86.828 Other complications of skin graft (allograft) (autograft) (principal); E11.622 Type 2 diabetes mellitus with other skin ulcer; L97.312 Non-pressure chronic ulcer of right ankle with fat layer exposed; I87.2 Venous insufficiency (chronic) (peripheral); E11.22 Type 2 diabetes mellitus with diabetic chronic kidney disease; N18.9 Chronic kidney disease, unspecified; J44.9 Chronic obstructive pulmonary disease, unspecified; I48.91 Unspecified atrial fibrillation; E78.5 Hyperlipidemia, unspecified; G43.909 Migraine, unspecified, not intractable, without status migrainosus; I34.0 Nonrheumatic mitral (valve) insufficiency; I82.90 Acute embolism and thrombosis of unspecified vein; E66.9 Obesity, unspecified; F41.9 Anxiety disorder, unspecified; Z68.31 Body mass index [BMI] 31.0-31.9, adult; Y83.2 Surgical operation with anastomosis, bypass or graft as the cause of abnormal reaction of the patient, or of later complication, without mention of misadventure at the time of the procedure

== ENCOUNTER → 2022-07-18 | Outpatient (CLI) | payer OTHER ==
[2022-07-18 12:48] LABS: INTERNATIONAL NORM RATIO 2.7 (2.0-3.5)
== END | disposition home or self-care (01) ==
LOC: LAB 11:42
PROVIDERS: ATTEND Specialist
DX: I34.0 Nonrheumatic mitral (valve) insufficiency (principal); I82.90 Acute embolism and thrombosis of unspecified vein

== ENCOUNTER → 2022-07-30 | Outpatient (CLI) | payer OTHER | END | disposition home or self-care (01) | LOC: WOUNDCARE 02:42 | PROVIDERS: ATTEND Podiatrist Foot & Ankle Surgery | DX: E11.622 Type 2 diabetes mellitus with other skin ulcer (principal); L97.312 Non-pressure chronic ulcer of right ankle with fat layer exposed; E11.22 Type 2 diabetes mellitus with diabetic chronic kidney disease; N18.9 Chronic kidney disease, unspecified; I87.2 Venous insufficiency (chronic) (peripheral); E78.5 Hyperlipidemia, unspecified; E66.9 Obesity, unspecified; I48.91 Unspecified atrial fibrillation; G43.909 Migraine, unspecified, not intractable, without status migrainosus; J44.9 Chronic obstructive pulmonary disease, unspecified; F41.9 Anxiety disorder, unspecified; Z87.891 Personal history of nicotine dependence ==

== ENCOUNTER → 2022-08-06 | Outpatient (CLI) | payer OTHER | END | disposition home or self-care (01) | LOC: WOUNDCARE 04:13 | PROVIDERS: ATTEND Podiatrist Foot & Ankle Surgery | DX: E11.622 Type 2 diabetes mellitus with other skin ulcer (principal); L97.312 Non-pressure chronic ulcer of right ankle with fat layer exposed; I87.2 Venous insufficiency (chronic) (peripheral); E78.5 Hyperlipidemia, unspecified; I48.91 Unspecified atrial fibrillation; E11.22 Type 2 diabetes mellitus with diabetic chronic kidney disease; N18.9 Chronic kidney disease, unspecified; E66.9 Obesity, unspecified; G43.909 Migraine, unspecified, not intractable, without status migrainosus; J44.9 Chronic obstructive pulmonary disease, unspecified; F41.9 Anxiety disorder, unspecified; Z87.891 Personal history of nicotine dependence; Z95.4 Presence of other heart-valve replacement ==

== ENCOUNTER → 2022-08-20 | Outpatient (CLI) | payer OTHER | END | disposition home or self-care (01) | LOC: WOUNDCARE 01:00 | PROVIDERS: ATTEND Podiatrist Foot & Ankle Surgery | DX: E11.622 Type 2 diabetes mellitus with other skin ulcer (principal); L97.312 Non-pressure chronic ulcer of right ankle with fat layer exposed; E11.22 Type 2 diabetes mellitus with diabetic chronic kidney disease; N18.9 Chronic kidney disease, unspecified; E78.5 Hyperlipidemia, unspecified; E66.9 Obesity, unspecified; G43.909 Migraine, unspecified, not intractable, without status migrainosus; I48.91 Unspecified atrial fibrillation; I87.2 Venous insufficiency (chronic) (peripheral); J44.9 Chronic obstructive pulmonary disease, unspecified; F41.9 Anxiety disorder, unspecified; Z87.891 Personal history of nicotine dependence; Z95.4 Presence of other heart-valve replacement ==

== ENCOUNTER 2022-08-24 03:45 | Emergency (ER) | payer OTHER ==
[~2022-08-24] VITALS: Ht 177.8 cm; Wt 113.4 kg
[2022-08-24 04:18] LABS: BASO % 0.4 % (0.0-1.0); EOS # 0.4 10*3/uL (0.0-0.4); EOS % 4.2 % (1.0-4.0); HEMATOCRIT 41.6 % (42.0-52.0); LYMPH # 2.9 10*3/uL (1.3-4.4); LYMPH % 29.8 % (27.0-41.0); MEAN CELL VOLUME 86.7 fl (80.0-94.0); MEAN CORPUSCULAR HGB CONC 33.4 g/dl (33.0-37.0); MEAN PLATELET VOLUME 9.2 fl (9.6-12.3); MONO # 0.8 10*3/uL (0.1-1.0); MONO % 8.3 % (3.0-9.0); NEUT # 5.4 10*3/uL (2.3-7.9); NEUT % 56.9 % (47.0-73.0); PLATELET COUNT AUTOMATED 243 10*3/uL (130-400); RED CELL DISTRI WIDTH 13.2 % (0-14.5); WHITE BLOOD COUNT 9.6 10*3/uL (4.8-10.8)
[2022-08-24 04:34] LABS: CREATININE 1.7 mg/dL (0.70-1.30)
[2022-08-24 06:01] VITALS: BP 138/82
== END 2022-08-24 07:03 | disposition home or self-care (01) ==
LOC: ED 03:45
PROVIDERS: Internal Medicine
DX: R07.9 Chest pain, unspecified (principal); E11.22 Type 2 diabetes mellitus with diabetic chronic kidney disease; N18.32 Chronic kidney disease, stage 3b; J44.9 Chronic obstructive pulmonary disease, unspecified; K21.9 Gastro-esophageal reflux disease without esophagitis; Z88.8 Allergy status to other drugs, medicaments and biological substances; Z79.899 Other long term (current) drug therapy; Z98.890 Other specified postprocedural states; Z87.891 Personal history of nicotine dependence

== ENCOUNTER → 2022-09-03 | Outpatient (CLI) | payer OTHER | END | disposition home or self-care (01) | LOC: WOUNDCARE 02:12 | PROVIDERS: ATTEND Podiatrist Foot & Ankle Surgery | DX: E11.622 Type 2 diabetes mellitus with other skin ulcer (principal); L97.312 Non-pressure chronic ulcer of right ankle with fat layer exposed; E11.22 Type 2 diabetes mellitus with diabetic chronic kidney disease; N18.9 Chronic kidney disease, unspecified; I87.2 Venous insufficiency (chronic) (peripheral); E78.5 Hyperlipidemia, unspecified; I48.91 Unspecified atrial fibrillation; G43.909 Migraine, unspecified, not intractable, without status migrainosus; J44.9 Chronic obstructive pulmonary disease, unspecified; F41.9 Anxiety disorder, unspecified; E66.9 Obesity, unspecified; Z87.891 Personal history of nicotine dependence; Z95.4 Presence of other heart-valve replacement ==

== ENCOUNTER → 2022-09-10 | Outpatient (CLI) | payer OTHER | END | disposition home or self-care (01) | LOC: WOUNDCARE 02:08 | PROVIDERS: ATTEND Podiatrist Foot & Ankle Surgery | DX: E11.622 Type 2 diabetes mellitus with other skin ulcer (principal); L97.312 Non-pressure chronic ulcer of right ankle with fat layer exposed; I87.2 Venous insufficiency (chronic) (peripheral); E78.5 Hyperlipidemia, unspecified; I48.91 Unspecified atrial fibrillation; E11.22 Type 2 diabetes mellitus with diabetic chronic kidney disease; N18.9 Chronic kidney disease, unspecified; J44.9 Chronic obstructive pulmonary disease, unspecified; E66.9 Obesity, unspecified; G43.909 Migraine, unspecified, not intractable, without status migrainosus; F41.9 Anxiety disorder, unspecified; Z87.891 Personal history of nicotine dependence; Z95.4 Presence of other heart-valve replacement; Z68.31 Body mass index [BMI] 31.0-31.9, adult ==

== ENCOUNTER → 2022-09-17 | Outpatient (CLI) | payer OTHER | END | disposition home or self-care (01) | LOC: WOUNDCARE 04:02 | PROVIDERS: ATTEND Podiatrist Foot & Ankle Surgery | DX: E11.622 Type 2 diabetes mellitus with other skin ulcer (principal); L97.312 Non-pressure chronic ulcer of right ankle with fat layer exposed; I87.2 Venous insufficiency (chronic) (peripheral); E78.5 Hyperlipidemia, unspecified; I48.91 Unspecified atrial fibrillation; E11.22 Type 2 diabetes mellitus with diabetic chronic kidney disease; N18.9 Chronic kidney disease, unspecified; J44.9 Chronic obstructive pulmonary disease, unspecified; E66.9 Obesity, unspecified; G43.909 Migraine, unspecified, not intractable, without status migrainosus; F41.9 Anxiety disorder, unspecified; Z87.891 Personal history of nicotine dependence; Z95.4 Presence of other heart-valve replacement; Z68.31 Body mass index [BMI] 31.0-31.9, adult ==

== ENCOUNTER → 2022-10-08 | Outpatient (CLI) | payer OTHER | END | disposition home or self-care (01) | LOC: WOUNDCARE 00:59 | PROVIDERS: ATTEND Podiatrist Foot & Ankle Surgery | DX: E11.622 Type 2 diabetes mellitus with other skin ulcer (principal); L97.312 Non-pressure chronic ulcer of right ankle with fat layer exposed; E11.52 Type 2 diabetes mellitus with diabetic peripheral angiopathy with gangrene; I96 Gangrene, not elsewhere classified; I87.2 Venous insufficiency (chronic) (peripheral); E78.5 Hyperlipidemia, unspecified; I48.91 Unspecified atrial fibrillation; E11.22 Type 2 diabetes mellitus with diabetic chronic kidney disease; N18.9 Chronic kidney disease, unspecified; G43.909 Migraine, unspecified, not intractable, without status migrainosus; E66.9 Obesity, unspecified; J44.9 Chronic obstructive pulmonary disease, unspecified; F41.9 Anxiety disorder, unspecified; Z87.891 Personal history of nicotine dependence; Z95.4 Presence of other heart-valve replacement ==

== ENCOUNTER → 2022-10-15 | Outpatient (CLI) | payer OTHER | END | disposition home or self-care (01) | LOC: WOUNDCARE 01:40 | PROVIDERS: ATTEND Podiatrist Foot & Ankle Surgery | DX: E11.622 Type 2 diabetes mellitus with other skin ulcer (principal); L97.312 Non-pressure chronic ulcer of right ankle with fat layer exposed; E11.22 Type 2 diabetes mellitus with diabetic chronic kidney disease; N18.9 Chronic kidney disease, unspecified; E78.5 Hyperlipidemia, unspecified; E66.9 Obesity, unspecified; G43.909 Migraine, unspecified, not intractable, without status migrainosus; I87.2 Venous insufficiency (chronic) (peripheral); I48.91 Unspecified atrial fibrillation; J44.9 Chronic obstructive pulmonary disease, unspecified; F41.9 Anxiety disorder, unspecified; Z87.891 Personal history of nicotine dependence; Z95.4 Presence of other heart-valve replacement; Z68.31 Body mass index [BMI] 31.0-31.9, adult ==

== ENCOUNTER → 2022-10-22 | Outpatient (CLI) | payer OTHER | END | disposition home or self-care (01) | LOC: WOUNDCARE 01:44 | PROVIDERS: ATTEND Podiatrist Foot & Ankle Surgery | DX: E11.622 Type 2 diabetes mellitus with other skin ulcer (principal); L97.312 Non-pressure chronic ulcer of right ankle with fat layer exposed; E11.22 Type 2 diabetes mellitus with diabetic chronic kidney disease; N18.9 Chronic kidney disease, unspecified; E78.5 Hyperlipidemia, unspecified; E66.9 Obesity, unspecified; I87.2 Venous insufficiency (chronic) (peripheral); I48.91 Unspecified atrial fibrillation; G43.909 Migraine, unspecified, not intractable, without status migrainosus; J44.9 Chronic obstructive pulmonary disease, unspecified; F41.9 Anxiety disorder, unspecified; Z87.891 Personal history of nicotine dependence; Z95.4 Presence of other heart-valve replacement; Z68.31 Body mass index [BMI] 31.0-31.9, adult ==

== ENCOUNTER → 2022-10-29 | Outpatient (CLI) | payer OTHER | END | disposition home or self-care (01) | LOC: WOUNDCARE 00:37 | PROVIDERS: ATTEND Podiatrist Foot & Ankle Surgery | DX: E11.622 Type 2 diabetes mellitus with other skin ulcer (principal); L97.312 Non-pressure chronic ulcer of right ankle with fat layer exposed; I87.2 Venous insufficiency (chronic) (peripheral); E11.22 Type 2 diabetes mellitus with diabetic chronic kidney disease; N18.9 Chronic kidney disease, unspecified; E78.5 Hyperlipidemia, unspecified; E66.9 Obesity, unspecified; I48.91 Unspecified atrial fibrillation; J44.9 Chronic obstructive pulmonary disease, unspecified; G43.909 Migraine, unspecified, not intractable, without status migrainosus; F41.9 Anxiety disorder, unspecified; Z87.891 Personal history of nicotine dependence; Z95.4 Presence of other heart-valve replacement ==

== ENCOUNTER → 2022-11-05 | Outpatient (CLI) | payer OTHER | END | disposition home or self-care (01) | LOC: WOUNDCARE 00:30 | PROVIDERS: ATTEND Podiatrist Foot & Ankle Surgery | DX: E11.622 Type 2 diabetes mellitus with other skin ulcer (principal); L97.312 Non-pressure chronic ulcer of right ankle with fat layer exposed; L84 Corns and callosities; E11.22 Type 2 diabetes mellitus with diabetic chronic kidney disease; N18.9 Chronic kidney disease, unspecified; I87.2 Venous insufficiency (chronic) (peripheral); E78.5 Hyperlipidemia, unspecified; E66.9 Obesity, unspecified; I48.91 Unspecified atrial fibrillation; G43.909 Migraine, unspecified, not intractable, without status migrainosus; J44.9 Chronic obstructive pulmonary disease, unspecified; F41.9 Anxiety disorder, unspecified; Z87.891 Personal history of nicotine dependence; Z95.4 Presence of other heart-valve replacement ==

== ENCOUNTER → 2022-11-19 | Outpatient (CLI) | payer OTHER | END | disposition home or self-care (01) | LOC: WOUNDCARE 08-13 02:44 | PROVIDERS: ATTEND Podiatrist Foot & Ankle Surgery | DX: E11.622 Type 2 diabetes mellitus with other skin ulcer (principal); L97.312 Non-pressure chronic ulcer of right ankle with fat layer exposed; L84 Corns and callosities; E11.22 Type 2 diabetes mellitus with diabetic chronic kidney disease; N18.9 Chronic kidney disease, unspecified; E78.5 Hyperlipidemia, unspecified; G43.909 Migraine, unspecified, not intractable, without status migrainosus; I48.91 Unspecified atrial fibrillation; E66.9 Obesity, unspecified; I87.2 Venous insufficiency (chronic) (peripheral); J44.9 Chronic obstructive pulmonary disease, unspecified; F41.9 Anxiety disorder, unspecified; Z87.891 Personal history of nicotine dependence; Z95.4 Presence of other heart-valve replacement ==

== ENCOUNTER → 2022-11-26 | Outpatient (CLI) | payer OTHER | END | disposition home or self-care (01) | LOC: WOUNDCARE 01:25 | PROVIDERS: ATTEND Podiatrist Foot & Ankle Surgery | DX: E11.622 Type 2 diabetes mellitus with other skin ulcer (principal); L97.312 Non-pressure chronic ulcer of right ankle with fat layer exposed; L84 Corns and callosities; E11.22 Type 2 diabetes mellitus with diabetic chronic kidney disease; N18.9 Chronic kidney disease, unspecified; E78.5 Hyperlipidemia, unspecified; E66.9 Obesity, unspecified; G43.909 Migraine, unspecified, not intractable, without status migrainosus; I87.2 Venous insufficiency (chronic) (peripheral); I48.91 Unspecified atrial fibrillation; J44.9 Chronic obstructive pulmonary disease, unspecified; F41.9 Anxiety disorder, unspecified; Z87.891 Personal history of nicotine dependence; Z95.4 Presence of other heart-valve replacement ==

== ENCOUNTER → 2022-12-10 | Outpatient (CLI) | payer OTHER | END | disposition home or self-care (01) | LOC: WOUNDCARE 01:57 | PROVIDERS: ATTEND Podiatrist Foot & Ankle Surgery | DX: E11.622 Type 2 diabetes mellitus with other skin ulcer (principal); L97.312 Non-pressure chronic ulcer of right ankle with fat layer exposed; L84 Corns and callosities; E11.22 Type 2 diabetes mellitus with diabetic chronic kidney disease; N18.9 Chronic kidney disease, unspecified; E78.5 Hyperlipidemia, unspecified; E66.9 Obesity, unspecified; G43.909 Migraine, unspecified, not intractable, without status migrainosus; I87.2 Venous insufficiency (chronic) (peripheral); I48.91 Unspecified atrial fibrillation; J44.9 Chronic obstructive pulmonary disease, unspecified; F41.9 Anxiety disorder, unspecified; Z87.891 Personal history of nicotine dependence; Z95.4 Presence of other heart-valve replacement ==

== ENCOUNTER → 2022-12-31 | Outpatient (CLI) | payer OTHER | END | disposition home or self-care (01) | LOC: WOUNDCARE 00:23 | PROVIDERS: ATTEND Podiatrist Foot & Ankle Surgery | DX: E11.622 Type 2 diabetes mellitus with other skin ulcer (principal); L97.312 Non-pressure chronic ulcer of right ankle with fat layer exposed; E11.22 Type 2 diabetes mellitus with diabetic chronic kidney disease; N18.9 Chronic kidney disease, unspecified; I87.2 Venous insufficiency (chronic) (peripheral); E78.5 Hyperlipidemia, unspecified; I48.91 Unspecified atrial fibrillation; G43.909 Migraine, unspecified, not intractable, without status migrainosus; E66.9 Obesity, unspecified; J44.9 Chronic obstructive pulmonary disease, unspecified; F41.9 Anxiety disorder, unspecified; Z87.891 Personal history of nicotine dependence ==

== ENCOUNTER → 2023-01-07 | Outpatient (CLI) | payer OTHER | END | disposition home or self-care (01) | LOC: WOUNDCARE 00:39 | PROVIDERS: ATTEND Podiatrist Foot & Ankle Surgery | DX: E11.622 Type 2 diabetes mellitus with other skin ulcer (principal); L97.312 Non-pressure chronic ulcer of right ankle with fat layer exposed; I87.2 Venous insufficiency (chronic) (peripheral); E78.5 Hyperlipidemia, unspecified; E66.9 Obesity, unspecified; G43.909 Migraine, unspecified, not intractable, without status migrainosus; N18.9 Chronic kidney disease, unspecified; I48.91 Unspecified atrial fibrillation; J44.9 Chronic obstructive pulmonary disease, unspecified; F41.9 Anxiety disorder, unspecified; Z87.891 Personal history of nicotine dependence; Z95.4 Presence of other heart-valve replacement ==

== ENCOUNTER → 2023-06-08 | Outpatient (CLI) | payer OTHER ==
[~2023-06-08] MED LIST changes: +CLOPIDOGREL75 MG PO; +HEPARIN 2525000 UNIT IV; +HYDROCODONE-AC1 EAC2 PO; +LIPITOR40 MG PO; +WARFARIN SODIUM1 MG PO; +WARFARIN SODIUM6 MG PO
[2023-06-08 10:41] LABS: BUN 13 mg/dl (9-23); CHLORIDE 106 mmol/L (98-107); POTASSIUM 4.3 mmol/L (3.4-5.1)
== END | disposition home or self-care (01) ==
LOC: LAB 09:52
PROVIDERS: ATTEND Thoracic Surgery (Cardiothoracic Vascular Surgery)
DX: I82.90 Acute embolism and thrombosis of unspecified vein (principal); Z95.2 Presence of prosthetic heart valve

== ENCOUNTER → 2023-08-21 | Outpatient (CLI) | payer OTHER | END | disposition home or self-care (01) | LOC: US 08:10 | PROVIDERS: ATTEND Internal Medicine Cardiovascular Disease | DX: S81.801A Unspecified open wound, right lower leg, initial encounter (principal); E11.65 Type 2 diabetes mellitus with hyperglycemia; E11.59 Type 2 diabetes mellitus with other circulatory complications; X58.XXXA Exposure to other specified factors, initial encounter; Y93.89 Activity, other specified; Y92.89 Other specified places as the place of occurrence of the external cause; Y99.8 Other external cause status ==

== ENCOUNTER 2024-02-23 17:02 | Emergency (ER) | payer OTHER ==
[~2024-02-23] VITALS: Ht 185.4 cm; Wt 122.5 kg
[2024-02-23 17:10] VITALS: BP 135/80
[2024-02-23 17:32] LABS: BASO % 0.4 % (0.0-1.0); EOS # 0.4 10*3/uL (0.0-0.4); EOS % 4.5 % (1.0-4.0); HEMATOCRIT 44.1 % (42.0-52.0); MEAN CELL VOLUME 90.6 fl (80.0-94.0); MEAN CORPUSCULAR HGB 29.8 pg (27.0-31.0); MEAN CORPUSCULAR HGB CONC 32.9 g/dl (33.0-37.0); MONO # 0.7 10*3/uL (0.1-1.0); MONO % 7.4 % (3.0-9.0); NEUT # 6.4 10*3/uL (2.3-7.9); NEUT % 66.3 % (47.0-73.0); PLATELET COUNT AUTOMATED 240 10*3/uL (130-400); RED BLOOD COUNT 4.87 10*6/uL (4.50-5.90); WHITE BLOOD COUNT 9.6 10*3/uL (4.8-10.8)
[2024-02-23 17:43] LABS: ACT PARTIAL THROMBO TIME 37.1 SECONDS (20.0-32.1)
[2024-02-23 17:49] LABS: ALKALINE PHOSPHATASE 136 U/L (46-116); BUN 10 mg/dl (9-23); CHLORIDE 103 mmol/L (98-107); POTASSIUM 3.8 mmol/L (3.4-5.1); SGPT/ALT 20 U/L (5-49); TOTAL PROTEIN 7.2 gm/dL (6.0-8.0)
[2024-02-23 17:52] LABS: ETHYL ALCOHOL < 3.0 mg/dl (<3)
[2024-02-23] MEDS ORDERED: SODIUM CHLORIDE 0.9% 100 ML BAG IV ONE (18:30)
[2024-02-23] MEDS ORDERED: IOHEXOL 350 MG/ML 100 ML VIAL IV ONE ×2 (18:30→18:43)
[2024-02-23] MEDS ORDERED: SODIUM CHLORIDE 0.9% 100 ML IV ONE (18:43)
[2024-02-23 21:18] LABS: BILIRUBIN Negative (Negative); BLOOD Negative (Negative); CLARITY Clear (Clear); COLOR Yellow (Yellow); GLUCOSE Negative (Negative); KETONE Negative (Negative); LEUKO ESTERASE Negative (Negative); NITRITE Negative (Negative); PH 5.5 (4.5-8.0); UROBILINOGEN 0.2 E.U./dl (0.0-1.0)
[2024-02-23 21:25] LABS: URINE AMPHETAMINES Negative (1000ng/ml); URINE BARBITURATES Negative (200ng/ml); URINE BENZODIAZEPINES Positive (200ng/ml); URINE CANNABINOIDS (THC) Negative (50ng/ml); URINE COCAINE Negative (300ng/ml); URINE METHADONE Negative (300ng/ml); URINE OPIATES Positive (300ng/ml); URINE PHENCYCLIDINE Negative (25ng/ml)
[2024-02-23 21:34] LABS: BACTERIA TRACE
[2024-02-23] MEDS ORDERED: Naloxone Hydrochloride 2 MG/2 ML SYR NAS ONE (22:00)
== END 2024-02-23 22:43 | disposition home or self-care (01) ==
LOC: ED 17:02
PROVIDERS: Nurse Practitioner Family
DX: G45.9 Transient cerebral ischemic attack, unspecified (principal); I48.91 Unspecified atrial fibrillation; J44.9 Chronic obstructive pulmonary disease, unspecified; E11.65 Type 2 diabetes mellitus with hyperglycemia; F41.9 Anxiety disorder, unspecified; G43.909 Migraine, unspecified, not intractable, without status migrainosus; E11.22 Type 2 diabetes mellitus with diabetic chronic kidney disease; N18.32 Chronic kidney disease, stage 3b; K21.9 Gastro-esophageal reflux disease without esophagitis; Z88.5 Allergy status to narcotic agent; Z88.8 Allergy status to other drugs, medicaments and biological substances; Z87.891 Personal history of nicotine dependence

== ENCOUNTER → 2024-05-22 | Outpatient (CLI) | payer OTHER ==
[~2024-05-22] MED LIST changes: +IOHEXOL 350 MG/ML 100 ML VIAL IV ONE; +SODIUM CHLORIDE 0.9% 100 ML BAG IV ONE
== END | disposition home or self-care (01) ==
LOC: LAB 02:43 → CT 09:00
PROVIDERS: ATTEND Internal Medicine Cardiovascular Disease
DX: S81.801D Unspecified open wound, right lower leg, subsequent encounter (principal); E11.59 Type 2 diabetes mellitus with other circulatory complications; I70.8 Atherosclerosis of other arteries; X58.XXXD Exposure to other specified factors, subsequent encounter

== ENCOUNTER → 2024-11-05 | Outpatient (CLI) | payer OTHER ==
[~2024-11-05] MED LIST changes: -IOHEXOL 350 MG/ML 100 ML VIAL IV ONE; -SODIUM CHLORIDE 0.9% 100 ML BAG IV ONE
[2024-11-05 09:39] LABS: BASO % 0.4 % (0.0-1.0); EOS # 0.3 10*3/uL (0.0-0.4); EOS % 4.1 % (1.0-4.0); MEAN CELL VOLUME 89.2 fl (80.0-94.0); MEAN CORPUSCULAR HGB 29.8 pg (27.0-31.0); MEAN CORPUSCULAR HGB CONC 33.4 g/dl (33.0-37.0); MEAN PLATELET VOLUME 9.2 fl (9.6-12.3); MONO # 0.4 10*3/uL (0.1-1.0); MONO % 5.2 % (3.0-9.0); NEUT # 4.9 10*3/uL (2.3-7.9); NEUT % 64.8 % (47.0-73.0); PLATELET COUNT AUTOMATED 211 10*3/uL (130-400); RED BLOOD COUNT 5.27 10*6/uL (4.50-5.90); RED CELL DISTRI WIDTH 12.8 % (0-14.5); WHITE BLOOD COUNT 7.6 10*3/uL (4.8-10.8)
[2024-11-05 10:07] LABS: ALKALINE PHOSPHATASE 138 U/L (46-116); BUN 12 mg/dl (9-23); CHLORIDE 104 mmol/L (98-107); CHOLESTEROL 143 mg/dL (<200); LDL CHOLESTEROL 66 mg/dL (9-159); POTASSIUM 3.9 mmol/L (3.4-5.1); SGPT/ALT 19 U/L (5-49); TOTAL PROTEIN 6.9 gm/dL (6.0-8.0)
[2024-11-05 10:18] LABS: VITAMIN D, 25-HYDROXY 14.8 ng/mL (30-100)
== END | disposition home or self-care (01) ==
LOC: LAB 09:04 → CT 10:00
PROVIDERS: ATTEND Internal Medicine
DX: R29.6 Repeated falls (principal); E11.9 Type 2 diabetes mellitus without complications; G62.9 Polyneuropathy, unspecified; E03.9 Hypothyroidism, unspecified; E78.2 Mixed hyperlipidemia; Z95.2 Presence of prosthetic heart valve

== ENCOUNTER 2025-06-16 15:17 | Emergency (ER) | payer OTHER ==
[~2025-06-16] VITALS: Ht 182.8 cm; Wt 114.8 kg
[~2025-06-16 15:17] MED LIST changes: +ALBUTEROL SULF HFA 1; +ASPIRIN CHILDRE81 MG PO; +BREYNA 160-4.10.3 GM INH; +Coumadin7.5 MG PO; +ENOXAPARIN100 MG/1 M SC; +WARFARIN2 MG PO
[2025-06-16 15:30] VITALS: BP 125/66
[2025-06-16 16:20] LABS: BASO # 0.0 10*3/uL (0.0-0.1); BASO % 0.4 % (0.0-1.0); EOS # 0.4 10*3/uL (0.0-0.4); EOS % 3.6 % (1.0-4.0); MEAN CELL VOLUME 91.1 fl (80.0-94.0); MEAN CORPUSCULAR HGB 29.8 pg (27.0-31.0); MEAN PLATELET VOLUME 9.0 fl (9.6-12.3); MONO # 0.7 10*3/uL (0.1-1.0); MONO % 6.7 % (3.0-9.0); NEUT # 7.4 10*3/uL (2.3-7.9); NEUT % 71.0 % (47.0-73.0); NUCLEATED RED BLOOD CELL 0.0 % (0.0-0.0); NUCLEATED RED BLOOD CELL 0.0 10*3/uL (0.0-0.0); PLATELET COUNT AUTOMATED 268 10*3/uL (130-400); RED CELL DISTRI WIDTH 13.9 % (0-14.5)
[2025-06-16 16:38] LABS: ACT PARTIAL THROMBO TIME 29.3 SECONDS (20.0-32.1)
[2025-06-16 16:44] LABS: BUN 14 mg/dl (9-23); SGPT/ALT 27 U/L (5-49)
== END 2025-06-16 19:49 | disposition home or self-care (01) ==
LOC: ED 15:17
PROVIDERS: Nurse Practitioner Family
DX: R07.89 Other chest pain (principal); J44.9 Chronic obstructive pulmonary disease, unspecified; F41.9 Anxiety disorder, unspecified; F32.A Depression, unspecified; K21.9 Gastro-esophageal reflux disease without esophagitis; E11.9 Type 2 diabetes mellitus without complications; F17.210 Nicotine dependence, cigarettes, uncomplicated; Z98.890 Other specified postprocedural states; Z88.5 Allergy status to narcotic agent; Z88.8 Allergy status to other drugs, medicaments and biological substances

== ENCOUNTER → 2025-08-30 | Outpatient (CLI) | payer OTHER ==
[~2025-08-30] MED LIST changes: +Coumadin3 MG PO; +Ipratropium Brom3 ML INH; +METHYLPHENIDATE20 M2 PO; +MUCUS RELIEF E600 MG PO; +VITAMIN D3125 MC1 PO
== END | disposition home or self-care (01) ==
LOC: RAD 10:15
PROVIDERS: ATTEND Family Medicine
DX: J44.9 Chronic obstructive pulmonary disease, unspecified (principal); J98.4 Other disorders of lung